=== PATIENT | male | born 1960 | race Caucasian/White ===

== ENCOUNTER → 2016-12-23 | Outpatient (CLI) | payer OTHER ==
[~2016-12-23] MED LIST: OXYC-284 PO
--- NOTE | 2016-12-23 16:46 | RADRPT ---
PROCEDURE: Right knee radiographs. CLINICAL INDICATION: Right knee pain. TECHNIQUE: Four views. Weight bearing. Frontal, lateral, oblique, and patellar view. COMPARISON: No prior studies are available for comparison. FINDINGS: There is no fracture or dislocation. The soft tissues are normal. There are degenerative changes with osteophytes arising from all 3 joint compartment margins. There is medial joint compartment narrowing and subarticular sclerosis. There is no lytic or blastic lesion. There is no radiopaque foreign body. IMPRESSION: 1. Moderate degenerative changes of the right knee. 2. Otherwise unremarkable study. RPTAT: QQ .Dylan Fishman MD, MD Date Time Electronically viewed and signed by .Dylan Fishman MD, on 12/23/2016 16:46 .R/
== END | disposition home or self-care (01) ==
LOC: HKI 10:10
PROVIDERS: ATTEND Orthopaedic Surgery
DX: M25.561 Pain in right knee (principal); M17.11 Unilateral primary osteoarthritis, right knee
CPT/HCPCS: 73564; Z7500; G0463

== ENCOUNTER 2017-07-18 09:51 | Inpatient (IN) | payer OTHER ==
[2017-07-17 14:51] VITALS: BMI 26.6
[~2017-07-18] VITALS: Ht 175.3 cm; Wt 83.6 kg
[2017-07-18] VITALS (19 sets, daily range): BP systolic 122–147; BP diastolic 66–94; PULSE 69–104; RESP 15–28; Ht 175.3 cm; Wt 83.6 kg
[~2017-07-18 09:51] MED LIST changes: +DIPHENHYDRAMINE 50 MG INJ IV PRN; +FENTAnyl 50 MCG/ML VIAL IV PRN; +HYDROmorphONE (0.2 MG/ML) 10ML SYG IV PRN; +MEPERIDINE 25 MG INJ IV PRN; +METOCLOPRAMIDE 10 MG INJ IV PRN; +ONDANSETRON 4 MG INJ IV PRN
[2017-07-18] MEDS ORDERED: GABA-526 PO (11:09)
[2017-07-18] MEDS ORDERED: RANI150T5 PO (11:10)
[2017-07-18] MEDS ORDERED: ASPI81TA3 PO (11:10)
[2017-07-18] MEDS ORDERED: MORP15TA92 PO (11:11)
--- NOTE | 2017-07-18 11:54 | PREOPHP ---
DATE OF ADMISSION: 07/18/2017 HISTORY OF PRESENT ILLNESS: The patient is a 57-year-old male, originally was seen in the office complaining of neck pain, pain going to the shoulders, down the left arm, and sometimes numbness. He also had low back pain with pain going to the left side to the left third toe and weakness in the left foot. 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 Conservative management was offered in the form of cervical epidural injections. The patient received 4 injections in the cervical spine without much relief. His condition is getting worse. The patient was having more pain in the cervical spine as well as in the arms as well as weakness in the legs. The patient also is complaining of gait dysfunction. The patient wants something more definite to be done. The only option left was surgical intervention in the form of cervical 3 to cervical 6 laminectomy with a possible fusion and a possible instrumentation. This was discussed with the patient in great detail and a possibility of fusion and instrumentation as well. The patient has agreed and wants to proceed. Surgical complications were discussed with the patient in great detail including infection, permanent nerve damage, bleeding, complications with anesthesia including stroke, heart attack and even . The patient has agreed and wants to proceed. PAST MEDICAL HISTORY: As stated. SURGICAL HISTORY: Per chart. SOCIAL HISTORY: Denies use of drugs, alcohol, or tobacco. ALLERGIES: PER CHART. MEDICATIONS: per chart. FAMILY HISTORY: Unremarkable. REVIEW OF SYSTEMS: Additional 10-point review of systems was conducted and pertinent positives in the HPI. PHYSICAL EXAMINATION: GENERAL APPEARANCE: The patient is awake, alert, oriented, follows simple commands properly. HEENT: Head is atraumatic, normocephalic. PULMONARY: No . No tachypnea. CARDIOVASCULAR: No JVD. No PND. ABDOMEN: Soft without . NEUROLOGIC: Awake, alert, oriented. Follows commands. Upper extremities overall strength is about 4/5 in the deltoids, biceps, triceps, , extensors and flexors. Lower extremity examination overall strength is about 4/5 in the hips, knees and ankles. RADIOGRAPHIC DATA: MRI of the cervical spine dated 05/27/2017 shows severe cervical stenosis of 3-4, 4-5, 5-6 with cord compression and signal RECOMMENDATIONS: For patient to undergo surgical intervention fusion and instrumentation. Surgical options and complications were discussed with the patient extensively. The patient will be admitted to the hospital for further care and management. Dictated By: Eddi Hunter MD /dashawn/kriss /Document#: [id number]
[2017-07-18] MEDS ORDERED: BUPIVACAINE 0.5%/EPI (SDV) 30 ML INJ ONE (13:45)
[2017-07-18] MEDS ORDERED: THROMBIN 5000 UNIT VIAL ONE (13:45)
[2017-07-18] MEDS ORDERED: GELATIN SIZE 100 SPONGE ONE (13:45)
[2017-07-18] MEDS ORDERED: niCARdipine 50 MG in SOD CHLORIDE 0.9% 480 ML IV PRN (15:30)
[2017-07-18] MEDS ORDERED: ONDANSETRON 4 MG INJ IV PRN (15:30)
[2017-07-18] MEDS ORDERED: LIDOCAINE 1% (MDV) 20 ML INJ ONE (15:46)
[2017-07-18] MEDS ORDERED: SUCCINYLCHOLINE CHLORIDE 100 MG/5 ML SYG IV ONE (15:46)
[2017-07-18] MEDS ORDERED: MIDAZOLAM 1 MG/ML 2 ML INJ ONE (15:46)
[2017-07-18] MEDS ORDERED: PROPOFOL 20 ML ONE (15:46)
[2017-07-18] MEDS ORDERED: PHENYLephrine (100 MCG/ML) 5ML SYG ONE (16:22)
[2017-07-18] MEDS ORDERED: CEFAZOLIN 1 GM INJ ONE (16:45)
[2017-07-18] MEDS ORDERED: FENTAnyl 50 MCG/ML VIAL ONE (17:14)
[2017-07-18] MEDS ORDERED: POLYMYXIN/BACITRACIN 1L IRRIG IRR ONE (17:36)
--- NOTE | 2017-07-18 18:18 | OPR ---
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
[2017-07-18] MEDS ORDERED: FAMOTIDINE 20 MG INJ ONE (18:30)
[2017-07-18] MEDS ORDERED: ONDANSETRON 4 MG INJ ONE (18:30)
[2017-07-18] MEDS ORDERED: DEXAMETHASONE 4 MG/ML 1 ML INJ ONE (18:30)
[2017-07-18] MEDS ORDERED: SUGAMMADEX SODIUM 200 MG/2 ML VIAL IV ONE (18:30)
[2017-07-18] MEDS: DEXTROSE 5%-LR 1,000 ML IV SCH ×2 (19:49→23:30)
[2017-07-18] MEDS: morphine 2 MG INJ IV PRN (20:04)
[2017-07-18] MEDS: DEXAMETHASONE 4 MG/ML 1 ML INJ IV SCH (20:04)
[2017-07-18] MEDS: CEFAZOLIN 1 GM/50 ML (PMX) 50 ML IVPB SCH (22:37)
[2017-07-19] VITALS (37 sets, daily range): BP systolic 115–154; BP diastolic 58–95; PULSE 66–109; RESP 12–25
[2017-07-19] MEDS: morphine 2 MG INJ IV PRN ×2 (00:59→14:38)
[2017-07-19] MEDS: DEXTROSE 5%-LR 1,000 ML IV SCH ×2 (04:27→13:31)
[2017-07-19] MEDS: CEFAZOLIN 1 GM/50 ML (PMX) 50 ML IVPB SCH ×3 (05:50→21:44)
[2017-07-19] MEDS: DEXAMETHASONE 4 MG/ML 1 ML INJ IV SCH ×4 (05:50→18:53)
--- NOTE | 2017-07-19 08:29 | RADRPT ---
PROCEDURE: X-ray fluoroscopic guidance for operative procedure CLINICAL INDICATION: C3-4 posterior fusion TECHNIQUE: Fluoroscopic guidance was provided for operative procedure Fluoro time: 3.4 seconds Number of images/sequences: 1 COMPARISON: None available FINDINGS: The patient is status post posterior fusion C3-C4 with screws and bars. IMPRESSION: The patient is status post posterior fusion C3-C4 with screws and bars. Please see operative report. RPTAT: HJES .Arnoldo Bourgeois MD, Date Time Electronically viewed and signed by .Arnoldo Bourgeois MD, on 07/19/2017 08:28 .S/
--- NOTE | 2017-07-19 12:22 | CONS ---
Date/Time of Note Date/Time of Note DATE: 07/19/17 TIME: 12:19 Assessment/Plan Assessment/Plan Additional Assessment/Plan seen/examined awake/alert/moves all/follows c3-7 laminectomy with fusion/instrumentation hemovac in place, will leave another 24hrs pt/ot cervical mri pending another day in icu Consultation Date/Type/Reason Admit Date/Time Jul 18, 2017 at 09:51 Initial Consult Date Exam/Review of Systems Vital Signs Vitals Vital Signs Date Time Temp Pulse Resp B/P Pulse Ox O2 Delivery O2 Flow Rate FiO2 07/19/17 12:00 89 07/19/17 12:00 19 135/81 96 Nasal Cannula 07/19/17 11:00 97.8 07/19/17 08:20 2.0 Intake and Output 07/18/17 07/18/17 07/19/17 14:59 22:59 06:59 Intake Total 2375 ml 1050 ml Output Total 585 ml 410 ml Balance 1790 ml 640 ml Medications Medications Current Medications Dexamethasone 4 mg 4 mg Q6 IV Last administered on 07/19/17 05:50; Admin Dose 4 MG; Start 07/18/17 at 18:00 Cefazolin Sodium 50 ml @ 100 mls/hr Q8 IVPB Last administered on 07/19/17 05: 50; Admin Dose 100 MLS/HR; Start 07/18/17 at 22:00; Stop 07/19/17 at 22:00 Nicardipine HCl 50 mg/Sodium Chloride 500 ml @ 50 mls/hr TITRATE PRN IV sbp< 160; Start 07/18/17 at 15:30 Dextrose/Lactated Ringer's (D5-Lr) 1,000 ml @ 125 mls/hr Q8H IV Last administered on 07/19/17 04:27; Admin Dose 125 MLS/HR; Start 07/18/17 at 15:30 Ondansetron HCl (Zofran Inj) 4 mg Q6H PRN IV NAUSEA AND/OR VOMITING; Start 07/18/17 at 15:30 Acetaminophen/ Hydrocodone Bitart ([place] (10/325)) 1 tab Q4H PRN PO PAIN; Start 07/18/17 at 15:30 Morphine Sulfate (morphine) 2 mg Q4H PRN IV severe pain Last administered on 00:59; Admin Dose 2 MG; Start 07/18/17 at 15:30 DAVID WATTS PA-C Jul 19, 2017 12:22
[2017-07-19] MEDS: CYCLOBENZAPRINE 10 MG TAB PO SCH ×2 (13:27→20:22)
[2017-07-19 13:46] LABS: BASOPHILS % 0.1 % (0.0-2.0); HEMATOCRIT 38.3 % (42.0-52.0); HEMOGLOBIN 13.1 g/dl (14.0-18.0); LYMPHOCYTES # 0.9 10^3/ul (0.8-2.9); LYMPHOCYTES % 4.9 % (15.0-51.0); MEAN CORPUSCULAR HEMOGLOBIN 29.6 pg (29.0-33.0); MEAN CORPUSCULAR HGB CONC 34.2 g/dl (32.0-37.0); MEAN CORPUSCULAR VOLUME 86.5 fl (82.0-101.0); MEAN PLATELET VOLUME 9.8 fl (7.4-10.4); MONOCYTE # 0.9 10^3/ul (0.3-0.9); MONOCYTES % 4.4 % (0.0-11.0); NEUTROPHIL # 17.2 10^3/ul (1.6-7.5); PLATELET COUNT 325 10^3/UL (140-415); RED BLOOD COUNT 4.43 10^6/ul (4.70-6.10); RED CELL DISTRIBUTION WIDTH 13.4 % (11.5-14.5); WHITE BLOOD COUNT 19.1 10^3/ul (4.8-10.8)
[2017-07-19 14:04] LABS: CALCIUM 9.1 mg/dl (8.4-10.2); CREATININE 0.81 mg/dl (0.61-1.24); POTASSIUM 3.8 mmol/L (3.5-5.1)
[2017-07-19] MEDS: ZOLPIDEM 5 MG TAB PO PRN (20:22)
[2017-07-20] VITALS (20 sets, daily range): BP systolic 120–155; BP diastolic 77–97; PULSE 81–102; RESP 15–27
[2017-07-20] MEDS: DEXAMETHASONE 4 MG/ML 1 ML INJ IV SCH ×3 (00:54→12:16)
[2017-07-20] MEDS: DEXTROSE 5%-LR 1,000 ML IV SCH ×3 (01:19→22:17)
[2017-07-20 05:37] LABS: BASOPHILS % 0.1 % (0.0-2.0); HEMATOCRIT 37.3 % (42.0-52.0); HEMOGLOBIN 12.7 g/dl (14.0-18.0); LYMPHOCYTES # 0.7 10^3/ul (0.8-2.9); LYMPHOCYTES % 3.3 % (15.0-51.0); MEAN CORPUSCULAR HEMOGLOBIN 29.4 pg (29.0-33.0); MEAN CORPUSCULAR VOLUME 86.3 fl (82.0-101.0); MEAN PLATELET VOLUME 10.2 fl (7.4-10.4); MONOCYTE # 0.8 10^3/ul (0.3-0.9); MONOCYTES % 3.8 % (0.0-11.0); NEUTROPHIL # 19.9 10^3/ul (1.6-7.5); NEUTROPHILS % 91.8 % (39.0-77.0); PLATELET COUNT 313 10^3/UL (140-415); RED BLOOD COUNT 4.32 10^6/ul (4.70-6.10); RED CELL DISTRIBUTION WIDTH 13.6 % (11.5-14.5); WHITE BLOOD COUNT 21.6 10^3/ul (4.8-10.8)
[2017-07-20 05:47] LABS: CALCIUM 9.2 mg/dl (8.4-10.2); CREATININE 0.78 mg/dl (0.61-1.24)
[2017-07-20] MEDS: CYCLOBENZAPRINE 10 MG TAB PO SCH ×3 (08:36→21:00)
--- NOTE | 2017-07-20 09:31 | RADRPT ---
PROCEDURE: MRI Cervical Spine. CLINICAL INDICATION: Followup status post cervical laminectomy changes TECHNIQUE: An MRI of the cervical spine was performed [facility] the following sequences: Sagittal and axial T1 weighted, sagittal and axial T2 weighted , sagittal STIR, delete the and axial GRE. COMPARISON: Cervical spine films dated 07/18/2017 and 11/11/2013 FINDINGS: There is straightening of the normal cervical lordosis present with 2 mm anterior subluxation of C2 on C3. The vertebral body heights are normal. Modic type 2 degenerative endplate changes are presen t at the C4-5 level and Modic type 1 degenerative endplate changes at C3-4. The patient is status po st laminectomy changes at the C3 through C6 levels. The patient is also status post anterior discect danae and fusion both anteriorly and posteriorly at C 03/04 through C6-7 levels. Posterior hardware is noted at the C3-C5 levels. The intervertebral discs demonstrate multilevel disc desiccation at C2-3 and C3-4 with mild disc space height loss. The cervical and upper thoracic cord is normal. The spec [facility] axial levels are as follows: Occiput to skull base: The posterior fossa and skull base appear normal. The spinal canal is patent without stenosis present. C2-3: Disc desiccation is present with mild disc space height loss. A mild 3 mm broad-based bulge is present. AP canal dimension is 9 mm. This results in a mild central canal stenosis without subartic ular recess stenosis. Left greater than right uncovertebral and facet osteoarthropathy is present. T his results in a severe left and mild right neural foraminal stenosis. C3-4: Disc desiccation is present with mild 2 mm eccentric bulge to the right. Decompression is note d at this level. The central canal and bilateral subarticular recesses are patent. Bilateral facet a rthropathy and uncovertebral osteoarthropathy is present which contributes to severe bilateral neura l foraminal stenosis. C4-5: Anterior discectomy and disc spacer with posterior decompression and hardware is noted with l aminectomy changes. The central canal and bilateral subarticular recesses are patent. Mild bilateral uncovertebral osteophytes and facet arthropathy is present which contributes to moderate bilateral neural foraminal stenosis. C4-5: Anterior discectomy and intervertebral disc spacer with post tear fusion and laminectomy paige es are again noted. A 3 mm central osteophyte is present. AP canal is decompressed however measures approximately 7 mm. The subarticular recess are patent. Bilateral uncovertebral osteophytes and face t arthropathy is present. This contributes to severe bilateral neural foraminal stenosis. C5-6: Laminectomy changes, with anterior fusion and intervertebral disc spacer and posterior element hardware fusion is present. The central canal and bilateral subarticular recesses are patent. Bilat eral facet and uncovertebral osteoarthropathy is present which contributes to severe bilateral neura l foraminal stenosis at this level. C6-7: The patient is status post anterior discectomy and intervertebral disc space at this level wit h laminectomy changes. The central canal and bilateral subarticular recesses are patent. Severe bila teral facet arthropathy and uncovertebral osteoarthropathy contribute to severe bilateral neural for aminal stenosis. C7-T1: Intervertebral discs is normal. The central canal, subarticular recess and neural foramen are patent. IMPRESSION: 1. No acute fractures or traumatic subluxations. 2. Straightening of the normal cervical lordosis with 2 mm anterior subluxation of C2 and C3. 3. Status post anterior discectomy and anterior and posterior fusion with laminectomy changes as no jayde above at the C3-C6 levels. 4. Multilevel broad-based disc osteophyte complexes as noted above at the C2-3 through C6-7 levels 5. Multilevel neural foraminal stenosis at the C2-3 through C6-7 levels 6. Multilevel facet and uncovertebral osteoarthropathy as noted. RPTAT: HDC .Jessica Andrews MD, Date Time Electronically viewed and signed by .Jessica Andrews MD, MD on 07/20/2017 09:31 .C/
--- NOTE | 2017-07-20 15:57 | CONS ---
Date/Time of Note Date/Time of Note DATE: 07/20/17 TIME: 15:56 Assessment/Plan Assessment/Plan Additional Assessment/Plan seen/examined awake/alert/follows/moves all c3-7 lami with fusion repeat mri looks good start ivabx for uti may leave unit pt/ot may be a good candidate for rehab. Consultation Date/Type/Reason Admit Date/Time Jul 18, 2017 at 09:51 Exam/Review of Systems Vital Signs Vitals Vital Signs Date Time Temp Pulse Resp B/P Pulse Ox O2 Delivery O2 Flow Rate FiO2 07/20/17 12:00 87 07/20/17 10:00 17 134/82 96 07/20/17 08:00 98.2 07/20/17 06:00 Room Air 07/19/17 08:20 2.0 Intake and Output 07/19/17 07/19/17 07/20/17 14:59 22:59 06:59 Intake Total 1440 ml 1000 ml 800 ml Output Total 1370 ml 825 ml 1565 ml Balance 70 ml 175 ml -765 ml Results Result Diagram: 07/20/17 0502 07/20/17 0502 Results 24 hrs Laboratory Tests Test 07/20/17 05:02 White Blood Count 21.6 H Red Blood Count 4.32 L Hemoglobin 12.7 L Hematocrit 37.3 L Mean Corpuscular Volume 86.3 Mean Corpuscular Hemoglobin 29.4 Mean Corpuscular Hemoglobin Concent 34.0 Red Cell Distribution Width 13.6 Platelet Count 313 Mean Platelet Volume 10.2 Neutrophils % 91.8 H Lymphocytes % 3.3 L Monocytes % 3.8 Eosinophils % 0.0 Basophils % 0.1 Nucleated Red Blood Cells % 0.0 Neutrophils # 19.9 H Lymphocytes # 0.7 L Monocytes # 0.8 Eosinophils # 0.0 Basophils # 0.0 Nucleated Red Blood Cells # 0.0 Sodium Level 141 Potassium Level 4.0 Chloride Level 106 Carbon Dioxide Level 27 Anion Gap 12 Blood Urea Nitrogen 12 Creatinine 0.78 Glucose Level 166 Calcium Level 9.2 Medications Medications Current Medications Dexamethasone 4 mg 4 mg Q6 IV Last administered on 07/20/17t 12:16; Admin Dose 4 MG; Start 07/18/17 at 18:00 Nicardipine HCl 50 mg/Sodium Chloride 500 ml @ 50 mls/hr TITRATE PRN IV sbp< 160; Start 07/18/17 at 15:30 Dextrose/Lactated Ringer's (D5-Lr) 1,000 ml @ 100 mls/hr Q10H IV Last administered on 07/20/17 11:47; Admin Dose 100 MLS/HR; Start 07/18/17 at 15:30 Ondansetron HCl (Zofran Inj) 4 mg Q6H PRN IV NAUSEA AND/OR VOMITING; Start 07/18/17 at 15:30 Acetaminophen/ Hydrocodone Bitart ([place] (10/325)) 1 tab Q4H PRN PO PAIN; Start 07/18/17 at 15:30 Morphine Sulfate (morphine) 2 mg Q4H PRN IV severe pain Last administered on 14:38; Admin Dose 2 MG; Start 07/18/17 at 15:30 Cyclobenzaprine HCl (Flexeril) 10 mg TID PO Last administered on 07/20/17 08: 36; Admin Dose 10 MG; Start 07/19/17 at 13:00 Zolpidem Tartrate (Ambien) 5 mg HS PRN PO INSOMNIA Last administered on 20:22; Admin Dose 5 MG; Start 07/19/17 at 20:00 DAVID WATTS PA-C Jul 20, 2017 15:57
[2017-07-20] MEDS ORDERED: VANCOMYCIN IV PER PHARMACY XX SCH (16:00)
[2017-07-20] MEDS: VANCOMYCIN 1.75 GM in SOD CHLORIDE 0.9% 500 ML IVPB SCH ×2 (17:30→18:50)
[2017-07-20] MEDS: morphine 2 MG INJ IV PRN (18:14)
[2017-07-21 00:32] VITALS: BP 110/56; RESP 18
[2017-07-21] MEDS: DEXTROSE 5%-LR 1,000 ML IV SCH ×4 (02:00→18:17)
[2017-07-21] MEDS ORDERED: VANCOMYCIN 1 GM in NS 250 ML IVPB SCH (05:00)
[2017-07-21 05:32] LABS: BASOPHILS % 0.2 % (0.0-2.0); HEMATOCRIT 36.8 % (42.0-52.0); HEMOGLOBIN 12.4 g/dl (14.0-18.0); LYMPHOCYTES # 1.8 10^3/ul (0.8-2.9); LYMPHOCYTES % 9.7 % (15.0-51.0); MEAN CORPUSCULAR HEMOGLOBIN 29.3 pg (29.0-33.0); MEAN CORPUSCULAR HGB CONC 33.7 g/dl (32.0-37.0); MEAN PLATELET VOLUME 10.2 fl (7.4-10.4); MONOCYTE # 1.5 10^3/ul (0.3-0.9); MONOCYTES % 8.1 % (0.0-11.0); NEUTROPHIL # 14.8 10^3/ul (1.6-7.5); NEUTROPHILS % 81.6 % (39.0-77.0); PLATELET COUNT 298 10^3/UL (140-415); RED BLOOD COUNT 4.23 10^6/ul (4.70-6.10); RED CELL DISTRIBUTION WIDTH 13.7 % (11.5-14.5); WHITE BLOOD COUNT 18.2 10^3/ul (4.8-10.8)
[2017-07-21 06:05] LABS: CREATININE 0.82 mg/dl (0.61-1.24); POTASSIUM 3.5 mmol/L (3.5-5.1)
[2017-07-21 07:55] VITALS: BP 113/64; RESP 18
[2017-07-21] MEDS: morphine 2 MG INJ IV PRN ×2 (08:44→15:19)
[2017-07-21] MEDS: CYCLOBENZAPRINE 10 MG TAB PO SCH ×2 (08:44→13:35)
[2017-07-21] MEDS: DEXAMETHASONE 4 MG TAB PO SCH (08:44)
--- NOTE | 2017-07-21 10:30 | PN ---
Date/Time of Note Date/Time of Note DATE: 07/21/17 TIME: 10:27 Assessment/Plan VTE Prophylaxis VTE Prophylaxis Intervention: SCD's Lines/Catheters IV Catheter Type (from Nrs): Peripheral IV Urinary Cath still in place: Yes Reason Cath still needed: urinary retention Assessment/Plan Chief Complaint/Hosp Course Patient complains of pain however able to get out of bed with PT, wants to go smoke. Problems: Assessment/Plan -Cervical spondylosis with cord compression, myelopathy and quadriparesis, status post cervical laminectomy with C3-C7 posterolateral fusion and instrumentation by Dr. Hunter on 07/18. Continue postoperative antibiotics and steroids, and medication. Continue physical therapy. -Obesity -Tobacco dependence, start nicotine patch. Further recommendations based on clinical course. Plan of care discussed with Dr. Argueta. Exam/Review of Systems Vital Signs Vitals Vital Signs Date Time Temp Pulse Resp B/P Pulse Ox O2 Delivery O2 Flow Rate FiO2 07/21/17 07:55 97.8 80 18 113/64 94 07/20/17 18:54 Room Air 07/19/17 08:20 2.0 Intake and Output 07/20/17 07/20/17 07/21/17 14:59 22:59 06:59 Intake Total 1220 ml 120 ml 1650 ml Output Total 1400 ml 405 ml 700 ml Balance -180 ml -285 ml 950 ml Exam Constitutional: alert, oriented Head: normocephalic Neck: other (Status post surgery), supple Respiratory: normal air movement Cardiovascular: nl pulses Gastrointestinal: non-tender, soft Extremities: normal pulses Neurological: nl mental status Results Result Diagram: 07/21/17 0425 07/21/17 0425 Results 24 hrs Laboratory Tests Test 07/21/17 04:25 White Blood Count 18.2 H Red Blood Count 4.23 L Hemoglobin 12.4 L Hematocrit 36.8 L Mean Corpuscular Volume 87.0 Mean Corpuscular Hemoglobin 29.3 Mean Corpuscular Hemoglobin Concent 33.7 Red Cell Distribution Width 13.7 Platelet Count 298 Mean Platelet Volume 10.2 Neutrophils % 81.6 H Lymphocytes % 9.7 L Monocytes % 8.1 Eosinophils % 0.0 Basophils % 0.2 Nucleated Red Blood Cells % 0.0 Neutrophils # 14.8 H Lymphocytes # 1.8 Monocytes # 1.5 H Eosinophils # 0.0 Basophils # 0.0 Nucleated Red Blood Cells # 0.0 Sodium Level 141 Potassium Level 3.5 Chloride Level 107 Carbon Dioxide Level 26 Anion Gap 12 Blood Urea Nitrogen 18 Creatinine 0.82 Glucose Level 130 Calcium Level 9.0 Medications Medications Current Medications Dextrose/Lactated Ringer's (D5-Lr) 1,000 ml @ 100 mls/hr Q10H IV Last administered on 07/21/17 02:00; Admin Dose 100 MLS/HR; Start 07/18/17 at 15:30 Ondansetron HCl (Zofran Inj) 4 mg Q6H PRN IV NAUSEA AND/OR VOMITING; Start 07/18/17 at 15:30 Acetaminophen/ Hydrocodone Bitart ([place] (10/325)) 1 tab Q4H PRN PO PAIN; Start 07/18/17 at 15:30 Morphine Sulfate (morphine) 2 mg Q4H PRN IV severe pain Last administered on 08:44; Admin Dose 2 MG; Start 07/18/17 at 15:30 Cyclobenzaprine HCl (Flexeril) 10 mg TID PO Last administered on 07/21/17 08: 44; Admin Dose 10 MG; Start 07/19/17 at 13:00 Zolpidem Tartrate (Ambien) 5 mg HS PRN PO INSOMNIA Last administered on 20:22; Admin Dose 5 MG; Start 07/19/17 at 20:00 Dexamethasone 4 mg 4 mg DAILY PO Last administered on 07/21/17 08:44; Admin Dose 4 MG; Start 07/21/17 at 09:00 Vancomycin HCl (Vancocin) 250 ml @ 125 mls/hr Q12H IVPB Last administered on 07/21/17 05:24; Admin Dose 125 MLS/HR; Start 07/21/17 at 05:00 SHAKIRA PAREKH Jul 21, 2017 10:30
[2017-07-21] MEDS: HYDROCODONE/APAP (10/325) TAB PO PRN (11:29)
[2017-07-21] MEDS: NICOTINE (21 MG/24 HR) PATCH TRANSDERM SCH ×2 (14:30→17:55)
[2017-07-21 15:38] VITALS: BP 121/76; RESP 18
[2017-07-21] MEDS: AMPICILLIN 500 MG CAP PO SCH (17:54)
[2017-07-21 20:30] VITALS: BP 101/57; RESP 18
[2017-07-22] MEDS: DEXTROSE 5%-LR 1,000 ML IV SCH ×2 (00:07→14:17)
[2017-07-22] MEDS: AMPICILLIN 500 MG CAP PO SCH ×5 (00:09→20:50)
[2017-07-22] MEDS: CYCLOBENZAPRINE 10 MG TAB PO SCH ×4 (00:09→20:50)
[2017-07-22 02:48] VITALS: BP 119/76; RESP 18
[2017-07-22] MEDS: DEXAMETHASONE 4 MG TAB PO SCH (07:59)
[2017-07-22 08:00] LABS: BASOPHILS % 0.2 % (0.0-2.0); EOSINOPHILS % 0.3 % (0.0-7.0); HEMATOCRIT 38.1 % (42.0-52.0); HEMOGLOBIN 12.9 g/dl (14.0-18.0); LYMPHOCYTES # 2.3 10^3/ul (0.8-2.9); MEAN CORPUSCULAR HEMOGLOBIN 29.3 pg (29.0-33.0); MEAN CORPUSCULAR HGB CONC 33.9 g/dl (32.0-37.0); MEAN CORPUSCULAR VOLUME 86.6 fl (82.0-101.0); MEAN PLATELET VOLUME 9.8 fl (7.4-10.4); MONOCYTE # 1.2 10^3/ul (0.3-0.9); MONOCYTES % 8.6 % (0.0-11.0); NEUTROPHILS % 73.5 % (39.0-77.0); PLATELET COUNT 296 10^3/UL (140-415); RED CELL DISTRIBUTION WIDTH 13.3 % (11.5-14.5); WHITE BLOOD COUNT 13.6 10^3/ul (4.8-10.8)
[2017-07-22] MEDS: HYDROCODONE/APAP (10/325) TAB PO PRN ×2 (08:03→13:24)
[2017-07-22 08:16] LABS: CALCIUM 8.9 mg/dl (8.4-10.2); CREATININE 0.92 mg/dl (0.61-1.24); POTASSIUM 3.5 mmol/L (3.5-5.1)
[2017-07-22 08:29] VITALS: BP 130/85; RESP 18
[2017-07-22] MEDS: morphine 2 MG INJ IV PRN (09:18)
[2017-07-22] MEDS: NICOTINE (21 MG/24 HR) PATCH TRANSDERM SCH (13:19)
--- NOTE | 2017-07-22 14:01 | PN ---
Date/Time of Note Date/Time of Note DATE: 07/22/17 TIME: 13:59 Assessment/Plan VTE Prophylaxis VTE Prophylaxis Intervention: SCD's Lines/Catheters IV Catheter Type (from Nrsg): Peripheral IV Urinary Cath still in place: Yes Reason Cath still needed: urinary retention Assessment/Plan Chief Complaint/Hosp Course Patient complains of significant amount of pain while out of bed, continue physical therapy, pending authorization for ARU placement Assessment/Plan -Cervical spondylosis with cord compression, myelopathy and quadriparesis, status post cervical laminectomy with C3-C7 posterolateral fusion and instrumentation by Dr. Hunter on 07/18. Continue postoperative antibiotics and steroids, and medication. Continue physical therapy. -Obesity -Tobacco dependence, continue nicotine patch, smoking cessation is strongly advised. Further recommendations based on clinical course. Plan of care discussed with Dr. Argueta. Problems: Exam/Review of Systems Vital Signs Vitals Vital Signs Date Time Temp Pulse Resp B/P Pulse Ox O2 Delivery O2 Flow Rate FiO2 07/22/17 08:29 97.4 87 18 130/85 94 07/20/17 18:54 Room Air 07/19/17 08:20 2.0 Intake and Output 07/21/17 07/21/17 07/22/17 14:59 22:59 06:59 Intake Total 1100 ml 1190 ml 1750 ml Output Total 1400 ml 1500 ml Balance 1100 ml -210 ml 250 ml Exam Constitutional: alert, oriented Neck: other (Status post surgery), supple Respiratory: normal air movement Cardiovascular: nl pulses Gastrointestinal: non-tender, soft Extremities: normal pulses Neurological: nl mental status Results Result Diagram: 07/22/17 0727 07/22/17 0727 Results 24 hrs Laboratory Tests Test 07/22/17 07:27 White Blood Count 13.6 #H Red Blood Count 4.40 L Hemoglobin 12.9 L Hematocrit 38.1 L Mean Corpuscular Volume 86.6 Mean Corpuscular Hemoglobin 29.3 Mean Corpuscular Hemoglobin Concent 33.9 Red Cell Distribution Width 13.3 Platelet Count 296 Mean Platelet Volume 9.8 Neutrophils % 73.5 Lymphocytes % 17.0 Monocytes % 8.6 Eosinophils % 0.3 Basophils % 0.2 Nucleated Red Blood Cells % 0.0 Neutrophils # 10.0 H Lymphocytes # 2.3 Monocytes # 1.2 H Eosinophils # 0.0 Basophils # 0.0 Nucleated Red Blood Cells # 0.0 Sodium Level 140 Potassium Level 3.5 Chloride Level 102 Carbon Dioxide Level 29 Anion Gap 13 Blood Urea Nitrogen 15 Creatinine 0.92 Glucose Level 99 Calcium Level 8.9 Medications Medications Current Medications Dextrose/Lactated Ringer's (D5-Lr) 1,000 ml @ 100 mls/hr Q10H IV Last administered on 07/22/17 00:07; Admin Dose 100 MLS/HR; Start 07/18/17 at 15:30 Ondansetron HCl (Zofran Inj) 4 mg Q6H PRN IV NAUSEA AND/OR VOMITING; Start 07/18/17 at 15:30 Acetaminophen/ Hydrocodone Bitart ([place] (10/325)) 1 tab Q4H PRN PO PAIN Last administered on 07/22/17 13:24; Admin Dose 1 TAB; Start 07/18/17 at 15:30 Morphine Sulfate (morphine) 2 mg Q4H PRN IV severe pain Last administered on 09:18; Admin Dose 2 MG; Start 07/18/17 at 15:30 Cyclobenzaprine HCl (Flexeril) 10 mg TID PO Last administered on 07/22/17 13: 19; Admin Dose 10 MG; Start 07/19/17 at 13:00 Zolpidem Tartrate (Ambien) 5 mg HS PRN PO INSOMNIA Last administered on 20:22; Admin Dose 5 MG; Start 07/19/17 at 20:00 Dexamethasone (Decadron) 4 mg DAILY PO Last administered on 07/22/17 07:59; Admin Dose 4 MG; Start 07/21/17 at 09:00 Nicotine (Nicoderm 21 Mg/ 24hr) 1 patch Q24H TRANSDERM Last administered on 13:19; Admin Dose 1 PATCH; Start 07/21/17 at 14:30 Ampicillin (Ampicillin) 500 mg QID PO Last administered on 07/22/17 13:19; Admin Dose 500 MG; Start 07/21/17 at 17:00 SHAKIRA PAREKH Jul 22, 2017 14:01
[2017-07-22 15:00] VITALS: BP 111/74; RESP 18
[2017-07-22 20:20] VITALS: BP 116/77; RESP 20
[2017-07-22] MEDS: ZOLPIDEM 5 MG TAB PO PRN (20:49)
[2017-07-23] MEDS: DEXTROSE 5%-LR 1,000 ML IV SCH ×2 (00:17→10:17)
[2017-07-23] MEDS: AMPICILLIN 500 MG CAP PO SCH ×4 (07:37→21:16)
[2017-07-23] MEDS: CYCLOBENZAPRINE 10 MG TAB PO SCH ×3 (07:37→21:16)
[2017-07-23] MEDS: morphine 2 MG INJ IV PRN (07:38)
[2017-07-23] MEDS: DEXAMETHASONE 4 MG TAB PO SCH (07:38)
[2017-07-23 08:04] VITALS: BP 123/83; RESP 19
[2017-07-23 08:35] LABS: BASOPHILS % 0.2 % (0.0-2.0); EOSINOPHILS # 0.1 10^3/ul (0.0-0.5); EOSINOPHILS % 0.5 % (0.0-7.0); HEMATOCRIT 39.2 % (42.0-52.0); HEMOGLOBIN 13.6 g/dl (14.0-18.0); LYMPHOCYTES # 2.3 10^3/ul (0.8-2.9); LYMPHOCYTES % 14.4 % (15.0-51.0); MEAN CORPUSCULAR HEMOGLOBIN 29.5 pg (29.0-33.0); MEAN CORPUSCULAR HGB CONC 34.7 g/dl (32.0-37.0); MEAN PLATELET VOLUME 9.7 fl (7.4-10.4); MONOCYTE # 1.1 10^3/ul (0.3-0.9); NEUTROPHIL # 12.4 10^3/ul (1.6-7.5); NEUTROPHILS % 77.2 % (39.0-77.0); PLATELET COUNT 343 10^3/UL (140-415); RED BLOOD COUNT 4.61 10^6/ul (4.70-6.10); RED CELL DISTRIBUTION WIDTH 13.2 % (11.5-14.5); WHITE BLOOD COUNT 16.1 10^3/ul (4.8-10.8)
[2017-07-23 09:12] LABS: CALCIUM 9.4 mg/dl (8.4-10.2); CREATININE 0.84 mg/dl (0.61-1.24); POTASSIUM 3.7 mmol/L (3.5-5.1)
[2017-07-23] MEDS: NICOTINE (21 MG/24 HR) PATCH TRANSDERM SCH (14:00)
--- NOTE | 2017-07-23 14:55 | PN ---
Date/Time of Note Date/Time of Note DATE: 07/23/17 TIME: 14:53 Assessment/Plan VTE Prophylaxis VTE Prophylaxis Intervention: SCD's Lines/Catheters IV Catheter Type (from Nrs): [place] Urinary Cath still in place: Yes Reason Cath still needed: urinary retention Assessment/Plan Chief Complaint/Hosp Course Patient complains of significant amount of pain while out of bed, continue physical therapy, okay to transfer to ARU Assessment/Plan -Cervical spondylosis with cord compression, myelopathy and quadriparesis, status post cervical laminectomy with C3-C7 posterolateral fusion and instrumentation by Dr. Hunter on 07/18. Continue postoperative antibiotics and steroids, and medication. Continue physical therapy. -Obesity -Tobacco dependence, continue nicotine patch, smoking cessation is strongly advised. Further recommendations based on clinical course. Plan of care discussed with Dr. Argueta. Problems: Exam/Review of Systems Vital Signs Vitals Vital Signs Date Time Temp Pulse Resp B/P Pulse Ox O2 Delivery O2 Flow Rate FiO2 07/23/17 08:04 98.2 84 19 123/83 98 07/20/17 18:54 Room Air 07/19/17 08:20 2.0 Intake and Output 07/22/17 07/22/17 07/23/17 14:59 22:59 06:59 Intake Total 840 ml 440 ml Output Total 1300 ml 1000 ml Balance -460 ml -560 ml Exam Constitutional: alert, oriented Neck: other (Status post surgery), supple Respiratory: normal air movement Cardiovascular: nl pulses Gastrointestinal: non-tender, soft Extremities: normal pulses Neurological: nl mental status Results Result Diagram: 07/23/17 0807 07/23/17 0807 Results 24 hrs Laboratory Tests Test 07/23/17 08:07 White Blood Count 16.1 H Red Blood Count 4.61 L Hemoglobin 13.6 L Hematocrit 39.2 L Mean Corpuscular Volume 85.0 Mean Corpuscular Hemoglobin 29.5 Mean Corpuscular Hemoglobin Concent 34.7 Red Cell Distribution Width 13.2 Platelet Count 343 Mean Platelet Volume 9.7 Neutrophils % 77.2 H Lymphocytes % 14.4 L Monocytes % 7.0 Eosinophils % 0.5 Basophils % 0.2 Nucleated Red Blood Cells % 0.0 Neutrophils # 12.4 H Lymphocytes # 2.3 Monocytes # 1.1 H Eosinophils # 0.1 Basophils # 0.0 Nucleated Red Blood Cells # 0.0 Sodium Level 139 Potassium Level 3.7 Chloride Level 103 Carbon Dioxide Level 28 Anion Gap 12 Blood Urea Nitrogen 20 Creatinine 0.84 Glucose Level 94 Calcium Level 9.4 Medications Medications Current Medications Dextrose/Lactated Ringer's (D5-Lr) 1,000 ml @ 100 mls/hr Q10H IV Last administered on 07/22/17 00:07; Admin Dose 100 MLS/HR; Start 07/18/17 at 15:30 Ondansetron HCl (Zofran Inj) 4 mg Q6H PRN IV NAUSEA AND/OR VOMITING; Start 07/18/17 at 15:30 Acetaminophen/ Hydrocodone Bitart ([place] (10/325)) 1 tab Q4H PRN PO PAIN Last administered on 07/22/17 13:24; Admin Dose 1 TAB; Start 07/18/17 at 15:30 Morphine Sulfate (morphine) 2 mg Q4H PRN IV severe pain Last administered on 07:38; Admin Dose 2 MG; Start 07/18/17 at 15:30 Cyclobenzaprine HCl (Flexeril) 10 mg TID PO Last administered on 07/23/17 14: 00; Admin Dose 10 MG; Start 07/19/17 at 13:00 Zolpidem Tartrate (Ambien) 5 mg HS PRN PO INSOMNIA Last administered on 20:49; Admin Dose 5 MG; Start 07/19/17 at 20:00 Dexamethasone (Decadron) 4 mg DAILY PO Last administered on 07/23/17 07:38; Admin Dose 4 MG; Start 07/21/17 at 09:00 Nicotine (Nicoderm 21 Mg/ 24hr) 1 patch Q24H TRANSDERM Last administered on 14:00; Admin Dose 1 PATCH; Start 07/21/17 at 14:30 Ampicillin (Ampicillin) 500 mg QID PO Last administered on 07/23/17 14:00; Admin Dose 500 MG; Start 07/21/17 at 17:00 SHAKIRA PAREKH Jul 23, 2017 14:55
[2017-07-23 15:51] VITALS: BP 121/79; RESP 18
[2017-07-23] MEDS: HYDROmorphONE 1 MG/ML SYG IV PRN (18:41)
[2017-07-23] MEDS ORDERED: POLYETHYLENE GLYCOL 17 GM PACKET PO PRN (19:00)
[2017-07-23 21:08] VITALS: BP 111/85; RESP 20
[2017-07-23] MEDS: ZOLPIDEM 5 MG TAB PO PRN (21:16)
[2017-07-23] MEDS: DOCUSATE SODIUM 100 MG CAP PO SCH (21:16)
[2017-07-24] MEDS: HYDROmorphONE 1 MG/ML SYG IV PRN ×2 (07:44→13:28)
[2017-07-24 08:16] VITALS: BP 127/86; RESP 18
[2017-07-24 08:36] LABS: BASOPHILS % 0.2 % (0.0-2.0); EOSINOPHILS # 0.1 10^3/ul (0.0-0.5); EOSINOPHILS % 0.6 % (0.0-7.0); HEMATOCRIT 41.3 % (42.0-52.0); HEMOGLOBIN 14.1 g/dl (14.0-18.0); LYMPHOCYTES # 2.6 10^3/ul (0.8-2.9); LYMPHOCYTES % 14.7 % (15.0-51.0); MEAN CORPUSCULAR HEMOGLOBIN 29.1 pg (29.0-33.0); MEAN CORPUSCULAR HGB CONC 34.1 g/dl (32.0-37.0); MEAN CORPUSCULAR VOLUME 85.3 fl (82.0-101.0); MONOCYTE # 1.2 10^3/ul (0.3-0.9); MONOCYTES % 6.4 % (0.0-11.0); NEUTROPHIL # 13.8 10^3/ul (1.6-7.5); NEUTROPHILS % 77.1 % (39.0-77.0); PLATELET COUNT 395 10^3/UL (140-415); RED BLOOD COUNT 4.84 10^6/ul (4.70-6.10); RED CELL DISTRIBUTION WIDTH 13.5 % (11.5-14.5); WHITE BLOOD COUNT 17.8 10^3/ul (4.8-10.8)
[2017-07-24] MEDS: AMPICILLIN 500 MG CAP PO SCH ×2 (08:45→12:27)
[2017-07-24] MEDS: CYCLOBENZAPRINE 10 MG TAB PO SCH ×2 (08:45→12:27)
[2017-07-24] MEDS: DOCUSATE SODIUM 100 MG CAP PO SCH (08:45)
[2017-07-24] MEDS: HYDROCODONE/APAP (10/325) TAB PO PRN ×2 (08:46→12:28)
[2017-07-24] MEDS: DEXAMETHASONE 4 MG TAB PO SCH (08:46)
[2017-07-24 08:54] LABS: CALCIUM 9.3 mg/dl (8.4-10.2); CREATININE 0.87 mg/dl (0.61-1.24); POTASSIUM 3.7 mmol/L (3.5-5.1)
[2017-07-24 12:12] VITALS: BP 120/75; PULSE 86; RESP 16
[2017-07-24] MEDS ORDERED: DIAZEPAM 5 MG TAB PO PRN (13:00)
--- NOTE | 2017-07-24 13:07 | CONS ---
Date/Time of Note Date/Time of Note DATE: 07/24/17 TIME: 13:06 Assessment/Plan Assessment/Plan Additional Assessment/Plan seen/examined co neck pain with rad to left arm moves all/sensation intact cervical laminectomy, with fusion encourage pt/ot wound looks good Consultation Date/Type/Reason Admit Date/Time Jul 18, 2017 at 09:51 Exam/Review of Systems Vital Signs Vitals Vital Signs Date Time Temp Pulse Resp B/P Pulse Ox O2 Delivery O2 Flow Rate FiO2 07/24/17 12:12 98.6 86 16 120/75 94 07/20/17 18:54 Room Air Intake and Output 07/23/17 07/23/17 07/24/17 15:00 23:00 07:00 Intake Total 700 ml 500 ml Output Total 1200 ml 1100 ml Balance -500 ml -600 ml Results Result Diagram: 07/24/17 0750 07/24/17 0750 Results 24 hrs Laboratory Tests Test 07/24/17 07:50 White Blood Count 17.8 H Red Blood Count 4.84 Hemoglobin 14.1 Hematocrit 41.3 L Mean Corpuscular Volume 85.3 Mean Corpuscular Hemoglobin 29.1 Mean Corpuscular Hemoglobin Concent 34.1 Red Cell Distribution Width 13.5 Platelet Count 395 Mean Platelet Volume 10.0 Neutrophils % 77.1 H Lymphocytes % 14.7 L Monocytes % 6.4 Eosinophils % 0.6 Basophils % 0.2 Nucleated Red Blood Cells % 0.0 Neutrophils # 13.8 H Lymphocytes # 2.6 Monocytes # 1.2 H Eosinophils # 0.1 Basophils # 0.0 Nucleated Red Blood Cells # 0.0 Sodium Level 139 Potassium Level 3.7 Chloride Level 103 Carbon Dioxide Level 27 Anion Gap 13 Blood Urea Nitrogen 26 H Creatinine 0.87 Glucose Level 91 Calcium Level 9.3 Medications Medications Current Medications Ondansetron HCl (Zofran Inj) 4 mg Q6H PRN IV NAUSEA AND/OR VOMITING; Start 07/18/17 at 15:30 Acetaminophen/ Hydrocodone Bitart ([place] (10/325)) 1 tab Q4H PRN PO PAIN Last administered on 07/24/17 12:28; Admin Dose 1 TAB; Start 07/18/17 at 15:30 Cyclobenzaprine HCl (Flexeril) 10 mg TID PO Last administered on 07/24/17 12: 27; Admin Dose 10 MG; Start 07/19/17 at 13:00 Zolpidem Tartrate (Ambien) 5 mg HS PRN PO INSOMNIA Last administered on 21:16; Admin Dose 5 MG; Start 07/19/17 at 20:00 Dexamethasone (Decadron) 4 mg DAILY PO Last administered on 07/24/17 08:46; Admin Dose 4 MG; Start 07/21/17 at 09:00 Nicotine (Nicoderm 21 Mg/ 24hr) 1 patch Q24H TRANSDERM Last administered on 14:00; Admin Dose 1 PATCH; Start 07/21/17 at 14:30 Ampicillin (Ampicillin) 500 mg QID PO Last administered on 07/24/17 12:27; Admin Dose 500 MG; Start 07/21/17 at 17:00 Hydromorphone HCl (Dilaudid) 1 mg Q3H PRN IV SEVERE PAIN LEVEL 7-10 Last administered on 07/24/17 07:44; Admin Dose 1 MG; Start 07/23/17 at 18:30 Docusate Sodium (Colace) 100 mg BID PO Last administered on 07/24/17 08:45; Admin Dose 100 MG; Start 07/23/17 at 21:00 Polyethylene Glycol (Miralax) 17 gm DAILY PRN PO CONSTIPATION; Start 07/23/17 at 19:00 Diazepam (Valium) 5 mg Q6H PRN PO ANXIETY; Start 07/24/17 at 13:00 DAVID WATTS PA-C Jul 24, 2017 13:07
[2017-07-24 14:21] VITALS: BP 129/76; RESP 18
[2017-07-24] MEDS: NICOTINE (21 MG/24 HR) PATCH TRANSDERM SCH (15:12)
--- NOTE | 2017-07-24 15:53 | HP ---
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 Further recommendations based on clinical course. Plan of care discussed with Dr. Argueta. HPI/ROS Admit Date/Time Admit Date/Time Jul 18, 2017 at 09:51 Hx of Present Illness This is a 57-year-old male was seen in dr Hunter office for neck pain, pain going to the shoulders, down the left arm, and sometimes numbness. He also had low back pain with pain going to the left side to the left third toe and weakness in the left foot. 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 The patient received 4 injections in the cervical spine without much relief. His condition is getting worse with c/o more pain in the cervical spine. BUE , BLE, gait dysfunction. The patient was admitted in ICU under Dr. Argueta for status post cervical 3-7 laminectomy with C3-C7 posterior lateral fusion and posterior segmental instrumentation at C3-C4 with an synapse by synthes. During assessment patient is alert, in mild distress due to pain. Staff is contacting Dr. Bowling. Patient denies any chest pain, shortness of breath, fever, chills, palpitations, headache, focal weakness or numbness, abdominal pain, nausea, vomiting. This complain of postop pain. Plan of care discussed with the staff ROS Respiratory: no complaints Cardiovascular: no complaints Gastrointestinal: no complaints Genitourinary: no complaints Musculoskeletal: neck pain PMH/Family/Social Past Medical History - Chronic neck pain Past Surgical History - SP Cervical fusion - Cataract surgery Social History Alcohol Use: none Smoking Status: Current every day smoker Drug Use: none Exam/Review of Systems Vital Signs Vitals Vital Signs Date Time Temp Pulse Resp B/P Pulse Ox O2 Delivery O2 Flow Rate FiO2 12/2/17 16:00 98.8 97 21 144/88 96 Room Air 07/19/17 08:20 2.0 Intake and Output 07/18/17 07/18/17 07/19/17 14:59 22:59 06:59 Intake Total 2375 ml 1050 ml Output Total 585 ml 410 ml Balance 1790 ml 640 ml Exam Constitutional: alert, other, well developed Psych: nl mood/affect Respiratory: normal air movement Cardiovascular: nl pulses Gastrointestinal: non-tender, soft Musculoskeletal: nl extremities to inspection Extremities: normal pulses Neurological: other (Awake, alert, follows simple commands) Labs Result Diagram: 07/19/17 1320 07/19/17 1320 Medications Medications Current Medications Dexamethasone 4 mg 4 mg Q6 IV Last administered on 07/19/17 13:28; Admin Dose 4 MG; Start 07/18/17 at 18:00 Cefazolin Sodium 50 ml @ 100 mls/hr Q8 IVPB Last administered on 07/19/17 13: 27; Admin Dose 100 MLS/HR; Start 07/18/17 at 22:00; Stop 07/19/17 at 22:00 Nicardipine HCl 50 mg/Sodium Chloride 500 ml @ 50 mls/hr TITRATE PRN IV sbp< 160; Start 07/18/17 at 15:30 Dextrose/Lactated Ringer's (D5-Lr) 1,000 ml @ 100 mls/hr Q10H IV Last administered on 07/19/17 13:31; Admin Dose 100 MLS/HR; Start 07/18/17 at 15:30 Ondansetron HCl (Zofran Inj) 4 mg Q6H PRN IV NAUSEA AND/OR VOMITING; Start 07/18/17 at 15:30 Acetaminophen/ Hydrocodone Bitart ([place] (10/325)) 1 tab Q4H PRN PO PAIN; Start 07/18/17 at 15:30 Morphine Sulfate (morphine) 2 mg Q4H PRN IV severe pain Last administered on 14:38; Admin Dose 2 MG; Start 07/18/17 at 15:30 Cyclobenzaprine HCl (Flexeril) 10 mg TID PO Last administered on 07/19/17 13: 27; Admin Dose 10 MG; Start 12/2/17 at 13:00 Procedures Procedures PROCEDURE: X-ray fluoroscopic guidance for operative procedure CLINICAL INDICATION: C3-4 posterior fusion TECHNIQUE: Fluoroscopic guidance was provided for operative procedure Fluoro time: 3.4 seconds Number of images/sequences: 1 COMPARISON: None available FINDINGS: The patient is status post posterior fusion C3-C4 with screws and bars. IMPRESSION: The patient is status post posterior fusion C3-C4 with screws and bars. Please see operative report. NI LEE Jul 19, 2017 18:36
[2017-07-25] MEDS ORDERED: DEXAMETHASONE 2 MG TAB PO SCH (09:00)
== END 2017-07-24 15:22 | DRG 471 ==
LOC: REC 09:51 → EEVIPCON 09:51 → ICU 19:04 → MS1 07-20 18:35
PROVIDERS: ADMIT Neurological Surgery; ATTEND Neurological Surgery
PROC: 00NW0ZZ Release Cervical Spinal Cord, Open Approach (ICD-10-PCS; 2017-07-18)
PROC: 0RG2071 Fusion of 2 or more Cervical Vertebral Joints with Autologous Tissue Substitute, Posterior Approach, Posterior Column, Open Approach (ICD-10-PCS; principal; 2017-07-18 12:00)
DX: M47.12 Other spondylosis with myelopathy, cervical region (principal); G82.50 Quadriplegia, unspecified; N39.0 Urinary tract infection, site not specified; E66.9 Obesity, unspecified; Z68.27 Body mass index [BMI] 27.0-27.9, adult; F17.200 Nicotine dependence, unspecified, uncomplicated; M47.22 Other spondylosis with radiculopathy, cervical region
CPT/HCPCS: 72020; 72141; 80048; 85025; 86850; 86900; 86901; 87081; 87086; 97110; 97116; 97162; 97166; 97530; J0690; J1100; J1170; J1644; J2250; J2270; J2370; J2405; J3010; J3370; J7040; J7121

== ENCOUNTER 2017-07-24 14:58 | Inpatient (IN) | payer OTHER ==
[~2017-07-24] VITALS: Ht 172.7 cm; Wt 83.6 kg
[~2017-07-24 14:58] MED LIST changes: +ASPI81TA3 PO; -DIPHENHYDRAMINE 50 MG INJ IV PRN; -FENTAnyl 50 MCG/ML VIAL IV PRN; +GABA-526 PO; -HYDROmorphONE (0.2 MG/ML) 10ML SYG IV PRN; -MEPERIDINE 25 MG INJ IV PRN; -METOCLOPRAMIDE 10 MG INJ IV PRN; +MORP15TA92 PO; -ONDANSETRON 4 MG INJ IV PRN; -OXYC-284 PO; +RANI150T5 PO
[2017-07-24 15:00] VITALS: Ht 172.7 cm; Wt 83.6 kg
[2017-07-24 15:58] VITALS: BP 119/84; PULSE 94; RESP 18
[2017-07-24] MEDS ORDERED: POLYETHYLENE GLYCOL 17 GM PACKET PO PRN (16:30)
[2017-07-24] MEDS ORDERED: NICOTINE (21 MG/24 HR) PATCH TRANSDERM SCH (16:30)
[2017-07-24] MEDS ORDERED: LACTULOSE 30ML CUP PO PRN (16:30)
[2017-07-24] MEDS ORDERED: ACETAMINOPHEN 325 MG TAB PO PRN (16:30)
[2017-07-24] MEDS ORDERED: MAGNESIUM HYDROXIDE 30ML CUP PO PRN (16:30)
[2017-07-24] MEDS ORDERED: DOCUSATE SODIUM 100 MG CAP PO SCH (16:30)
[2017-07-24] MEDS ORDERED: BISACODYL 10 MG SUPP PR PRN (16:30)
[2017-07-24] MEDS ORDERED: ONDANSETRON 4 MG INJ IV PRN (16:30)
[2017-07-24] MEDS: HYDROmorphONE 1 MG/ML SYG IV STA ×2 (16:46→17:06)
[2017-07-24] MEDS: AMPICILLIN 500 MG CAP PO SCH ×2 (17:00→20:13)
[2017-07-24] MEDS ORDERED: HYDROmorphONE 1 MG/ML SYG IV STA (18:13)
[2017-07-24 18:53] LABS: ADD UMIC NO; UR ASCORBIC ACID 40 mg/dL (NEGATIVE); UR BILIRUBIN (Dip) NEGATIVE (NEGATIVE); UR BLOOD (Dip) NEGATIVE (NEGATIVE); UR CLARITY CLEAR (CLEAR); UR COLOR YELLOW (YELLOW); UR GLUCOSE (Dip) NEGATIVE (NEGATIVE); UR KETONES (Dip) NEGATIVE (NEGATIVE); UR LEUKOCYTE ESTERASE (Dip) NEGATIVE Leu/ul (NEGATIVE); UR NITRITE (Dip) NEGATIVE (NEGATIVE); UR SPECIFIC GRAVITY (Dip) 1.028 (1.003-1.030); UR TOTAL PROTEIN (Dip) NEGATIVE (NEGATIVE); UR UROBILINOGEN (Dip) 1+ mg/dL (NEGATIVE)
[2017-07-24 19:49] VITALS: BP 129/77; RESP 18
[2017-07-24] MEDS: CYCLOBENZAPRINE 10 MG TAB PO SCH (20:14)
[2017-07-24] MEDS: ZOLPIDEM 5 MG TAB PO PRN (20:17)
[2017-07-24] MEDS: DOCUSATE SODIUM 100 MG CAP PO SCH (21:00)
[2017-07-24] MEDS: SENNA TAB PO SCH (21:00)
[2017-07-25] MEDS: HYDROmorphONE 1 MG/ML SYG IV PRN ×6 (06:47→23:57)
[2017-07-25 07:00] VITALS: BP 132/90; RESP 18
[2017-07-25 07:15] LABS: BASOPHILS % 0.2 % (0.0-2.0); EOSINOPHILS # 0.1 10^3/ul (0.0-0.5); EOSINOPHILS % 0.2 % (0.0-7.0); HEMATOCRIT 40.9 % (42.0-52.0); HEMOGLOBIN 13.9 g/dl (14.0-18.0); LYMPHOCYTES # 1.8 10^3/ul (0.8-2.9); LYMPHOCYTES % 8.8 % (15.0-51.0); MEAN CORPUSCULAR HEMOGLOBIN 29.1 pg (29.0-33.0); MEAN CORPUSCULAR VOLUME 85.6 fl (82.0-101.0); MEAN PLATELET VOLUME 9.7 fl (7.4-10.4); MONOCYTE # 1.3 10^3/ul (0.3-0.9); MONOCYTES % 6.5 % (0.0-11.0); NEUTROPHIL # 16.9 10^3/ul (1.6-7.5); NEUTROPHILS % 83.1 % (39.0-77.0); PLATELET COUNT 409 10^3/UL (140-415); RED BLOOD COUNT 4.78 10^6/ul (4.70-6.10); RED CELL DISTRIBUTION WIDTH 13.2 % (11.5-14.5); WHITE BLOOD COUNT 20.4 10^3/ul (4.8-10.8)
[2017-07-25 07:38] LABS: ALBUMIN 3.4 g/dl (3.3-4.9); ALBUMIN/GLOBULIN RATIO 1.03; BILIRUBIN,INDIRECT 0.1 mg/dl (0-1.1); BILIRUBIN,TOTAL 0.1 mg/dl (0.2-1.3); CALCIUM 9.3 mg/dl (8.4-10.2); CREATININE 0.8 mg/dl (0.61-1.24); POTASSIUM 4.1 mmol/L (3.5-5.1); TOTAL PROTEIN 6.7 g/dl (6.1-8.1)
[2017-07-25 08:00] VITALS: BP 132/90; PULSE 83; RESP 18
[2017-07-25] MEDS: CYCLOBENZAPRINE 10 MG TAB PO SCH ×2 (09:09→12:28)
[2017-07-25] MEDS: DOCUSATE SODIUM 100 MG CAP PO SCH ×2 (09:09→20:23)
[2017-07-25] MEDS: AMPICILLIN 500 MG CAP PO SCH ×3 (09:09→20:19)
[2017-07-25] MEDS: DEXAMETHASONE 2 MG TAB PO SCH (09:13)
--- NOTE | 2017-07-25 12:38 | CONS ---
DATE OF ADMISSION: 07/24/2017 DATE OF CONSULTATION: 07/25/2017 REHABILITATION POST ADMISSION PHYSICIAN EVALUATION REHABILITATION IMPAIRMENT CATEGORY: Cervical spondylosis with cord compression , status post decompressive laminectomy and fusion. ACTIVE COMORBIDITIES: 1. Acute pain syndrome. 2. Recent urinary retention. 3. Impairments in self-care and mobility. HISTORY OF PRESENT ILLNESS: The patient is a 57-year-old gentleman who had been noting severe increasing neck pain despite conservative measures. The patient had noted that the pain was radiating and accompanied by numbness and also occasionally going down the left lower extremity. Workup did reveal cervical stenosis C3 through C6 with cord compression and myelopathy. The patient did undergo cervical decompressive laminectomy and fusion. His postoperative course has been notable for significant pain in addition to impairments in self-care and mobility as compared to baseline. The patient has been cleared to transfer to the rehabilitation unit for comprehensive interdisciplinary rehab care. FUNCTIONAL HISTORY: Prior to recent events, he was independent in self-care tasks and mobility. Currently, he requires maximal assist for self-care and minimal to moderate assist for mobility tasks. I have reviewed the preadmission screen and the patient's current functional status is consistent with the preadmission screen. SOCIAL HISTORY: The patient reports living at home with family and hopes to return there upon discharge. PAST MEDICAL HISTORY: Chronic neck pain. CURRENT MEDICATIONS: 1. [place] p.r.n. 2. Ampicillin 500 mg p.o. q.i.d. 3. Flexeril 10 mg p.o. t.i.d. 4. Decadron. 5. Valium p.r.n. 6. Colace 100 mg b.i.d. 7. Dilaudid p.r.n. 8. MiraLax p.r.n. 9. Ambien p.r.n. ALLERGIES: THE PATIENT WITH NO KNOWN DRUG ALLERGIES. PHYSICAL EXAMINATION: VITAL SIGNS: The patient is currently afebrile with stable vital signs. HEENT: The extraocular motion intact. Oropharynx clear. NECK: Supple. LUNGS: Clear anteriorly. CARDIAC: S1, S2. ABDOMEN: Soft, nontender, positive bowel sounds. NEUROLOGIC: He is awake and alert and oriented x3. He can follow simple 1- step commands. He demonstrates antigravity strength in bilateral upper extremity and lower extremity. He does have impaired dynamic balance. PLAN: The patient has been admitted for comprehensive interdisciplinary acute rehab and is anticipated to tolerate 3 hours of daily therapy in divided doses for at least 5/7 days a week. The treatment plan will include: 1. Physical therapy to focus on bed mobility, transfers, and household ambulation with the goal of having the patient reach a standby assist level. Given that patient does live in a third floor apartment with no elevator access , the goal will also be to have patient independent with stair mobility. 2. Occupational therapy to focus on hygiene, grooming, dressing, bathing, and toileting activities with the goal of having the patient reach standby assist level. 3. Rehabilitation nursing for carryover of therapeutic interventions. The goal of continent of bowel and bladder, and the goal of pain adequately managed on oral medications. ESTIMATED LENGTH OF STAY: seven days. DISPOSITION GOAL: home. Rehabilitation Barrier: Pain Intervention For Barrier: Interdisciplinary Rehabilitation I acknowledge that I performed a full physical examination on this patient within 24 hours of admission to the rehabilitation unit and believe the patient is a good candidate for comprehensive interdisciplinary rehab care and is anticipated to make reasonable goals in a reasonable period of time as outlined above. Dictated By: TAVON RAMIREZ/SHANE Conf#: [id number] DID#: [id number]
[2017-07-25] MEDS ORDERED: BACLOFEN 10 MG TAB PO SCH (13:30)
[2017-07-25 14:00] VITALS: BP 124/74; RESP 18
[2017-07-25] MEDS: HYDROCODONE/APAP (10/325) TAB PO PRN (14:11)
[2017-07-25] MEDS: NICOTINE (21 MG/24 HR) PATCH TRANSDERM SCH (15:35)
[2017-07-25 20:00] VITALS: BP 124/78; RESP 18
--- NOTE | 2017-07-25 20:11 | HP ---
Date/Time of Note Date/Time of Note DATE: 07/25/17 TIME: 20:10 Assessment/Plan VTE Prophylaxis VTE Prophylaxis Intervention: SCD's Assessment/Plan Chief Complaint/Hosp Course Assessment/Plan -Cervical spondylosis with cord compression, myelopathy and quadriparesis, status post cervical laminectomy with C3-C7 posterolateral fusion and instrumentation by Dr. Hunter on 07/18. Continue postoperative antibiotics and steroids, and medication. Continue physical and occupational therapy. -Leukocytosis secondary to steroids -Tobacco dependence, continue nicotine patch, smoking cessation is strongly advised. Further recommendations based on clinical course. Plan of care discussed with Dr. Argueta. Problems: HPI/ROS Admit Date/Time Admit Date/Time Jul 24, 2017 at 15:36 Hx of Present Illness Patient is 57-year-old male with cervical myelopathy and cord compression that failed conservative treatment. Patient underwent cervical laminectomy with C3- C7 posterolateral fusion and instrumentation by Dr. Hunter on 07/18. Post surgery patient experienced significant pain and impairment in mobility and self -care. Patient is admitted to acute rehabilitation for further management. Patient denies any fever chills denies dysuria denies nausea vomiting. ROS 12 point review of system is negative unless one mentioned in HPI PMH/Family/Social Past Medical History Medical History: GERD, other (Chronic back pain, neck pain) Past Surgical History Status post back surgery Status post cataract surgery Family History Significant Family History: no pertinent family hx Social History Alcohol Use: none Smoking Status: Current every day smoker Drug Use: none Exam/Review of Systems Vital Signs Vitals Vital Signs Date Time Temp Pulse Resp B/P Pulse Ox O2 Delivery O2 Flow Rate FiO2 07/25/17 14:00 97.2 90 18 124/74 92 07/25/17 08:00 Room Air Intake and Output 07/24/17 07/24/17 07/25/17 15:00 23:00 07:00 Intake Total 2600 ml Output Total 400 ml Balance 2200 ml Exam Constitutional: alert, oriented Head: normocephalic Neck: other (Status post surgery), supple Respiratory: normal air movement Cardiovascular: nl pulses Gastrointestinal: non-tender, soft Musculoskeletal: nl extremities to inspection Extremities: normal pulses Labs Result Diagram: 07/25/1762407/25/17624 Medications Medications Current Medications Senna (Senokot) 1 tab HS PO ; Start 07/24/17 at 21:00 Acetaminophen (Tylenol Tab) 650 mg Q4H PRN PO PAIN; Start 07/24/17 at 16:30 Bisacodyl (Dulcolax Supp) 10 mg DAILY PRN [place] CONSTIPATION; Start 07/24/17 at 16 :30 Magnesium Hydroxide (Milk Of Mag) 30 ml Q12H PRN PO CONSTIPATION; Start at 16:30 Lactulose (Enulose) 20 gm DAILY PRN PO CONSTIPATION; Start 07/24/17 at 16:30 Ondansetron HCl (Zofran Inj) 4 mg Q6H PRN IV NAUSEA AND/OR VOMITING; Start 07/24/17 at 16:30 Zolpidem Tartrate (Ambien) 5 mg HS PRN PO INSOMNIA Last administered on 20:17; Admin Dose 5 MG; Start 07/24/17 at 16:30 Polyethylene Glycol (Miralax) 17 gm DAILY PRN PO CONSTIPATION; Start 07/24/17 at 16:30 Nicotine (Nicoderm 21 Mg/ 24hr) 1 patch Q24H TRANSDERM Last administered on 15:35; Admin Dose 1 PATCH; Start 07/25/17 at 14:30 Acetaminophen/ Hydrocodone Bitart ([place] (10/325)) 1 tab Q4H PRN PO PAIN Last administered on 07/25/17 14:11; Admin Dose 1 TAB; Start 07/24/17 at 16:30 Ampicillin (Ampicillin) 500 mg QID PO Last administered on 07/25/17 12:28; Admin Dose 500 MG; Start 07/24/17 at 17:00 Hydromorphone HCl (Dilaudid) 1 mg Q3H PRN IV SEVERE PAIN LEVEL 7-10 Last administered on 07/25/17 19:55; Admin Dose 1 MG; Start 07/24/17 at 16:30 Docusate Sodium (Colace) 100 mg BID PO Last administered on 07/25/17 09:09; Admin Dose 100 MG; Start 07/24/17 at 21:00 Diazepam (Valium) 5 mg Q6H PRN PO ANXIETY; Start 07/24/17 at 16:30 Dexamethasone (Decadron) 2 mg DAILY PO Last administered on 07/25/17 09:13; Admin Dose 2 MG; Start 07/25/17 at 09:00 Influenza Virus Vaccine (Fluzone) 0.5 ml ONCE ONCE IM* ; Start 07/25/17 at 21:00 ; Stop 07/25/17 at 21:01 Baclofen (Lioresal) 10 mg BID PO ; Start 07/25/17 at 17:00 SHAKIRA PAREKH Jul 25, 2017 20:11
[2017-07-25] MEDS: BACLOFEN 10 MG TAB PO SCH (20:19)
[2017-07-25] MEDS: SENNA TAB PO SCH (20:23)
[2017-07-25] MEDS ORDERED: INFLUENZA VIRUS VACCINE 0.5 ML SYG IM* ONE (21:00)
[2017-07-25] MEDS: ZOLPIDEM 5 MG TAB PO PRN (21:48)
[2017-07-26 02:00] VITALS: BP 120/75; RESP 18
--- NOTE | 2017-07-26 06:52 | CONS ---
Date/Time of Note Date/Time of Note DATE: 07/26/17 TIME: 06:51 Consult Date/Type/Reason Admit Date/Time Jul 24, 2017 at 15:36 Initial Consult Date Subjective Reports feeling much better Objective pulm-cta cga/min assist ambulation Vital Signs Date Time Temp Pulse Resp B/P Pulse Ox O2 Delivery O2 Flow Rate FiO2 07/26/17 02:00 98.0 82 18 120/75 96 07/25/17 08:00 Room Air Intake and Output 07/25/17 07/25/17 07/26/17 15:00 23:00 07:00 Intake Total 1600 ml Output Total 600 ml Balance 1000 ml Results/Medications Result Diagram: 07/25/1762407/25/17624 Medications Current Medications Senna (Senokot) 1 tab HS PO ; Start 07/24/17 at 21:00 Acetaminophen (Tylenol Tab) 650 mg Q4H PRN PO PAIN; Start 07/24/17 at 16:30 Bisacodyl (Dulcolax Supp) 10 mg DAILY PRN [place] CONSTIPATION; Start 07/24/17 at 16 :30 Magnesium Hydroxide (Milk Of Mag) 30 ml Q12H PRN PO CONSTIPATION; Start at 16:30 Lactulose (Enulose) 20 gm DAILY PRN PO CONSTIPATION; Start 07/24/17 at 16:30 Ondansetron HCl (Zofran Inj) 4 mg Q6H PRN IV NAUSEA AND/OR VOMITING; Start 07/24/17 at 16:30 Zolpidem Tartrate (Ambien) 5 mg HS PRN PO INSOMNIA Last administered on 21:48; Admin Dose 5 MG; Start 07/24/17 at 16:30 Polyethylene Glycol (Miralax) 17 gm DAILY PRN PO CONSTIPATION; Start 07/24/17 at 16:30 Nicotine (Nicoderm 21 Mg/ 24hr) 1 patch Q24H TRANSDERM Last administered on 15:35; Admin Dose 1 PATCH; Start 07/25/17 at 14:30 Acetaminophen/ Hydrocodone Bitart ([place] (10/325)) 1 tab Q4H PRN PO PAIN Last administered on 07/25/17 14:11; Admin Dose 1 TAB; Start 07/24/17 at 16:30 Ampicillin (Ampicillin) 500 mg QID PO Last administered on 07/25/17 20:19; Admin Dose 500 MG; Start 07/24/17 at 17:00 Hydromorphone HCl (Dilaudid) 1 mg Q3H PRN IV SEVERE PAIN LEVEL 7-10 Last administered on 07/25/17 23:57; Admin Dose 1 MG; Start 07/24/17 at 16:30 Docusate Sodium (Colace) 100 mg BID PO Last administered on 07/25/17 09:09; Admin Dose 100 MG; Start 07/24/17 at 21:00 Diazepam (Valium) 5 mg Q6H PRN PO ANXIETY; Start 07/24/17 at 16:30 Dexamethasone (Decadron) 2 mg DAILY PO Last administered on 07/25/17 09:13; Admin Dose 2 MG; Start 07/25/17 at 09:00 Baclofen (Lioresal) 10 mg BID PO Last administered on 07/25/17 20:19; Admin Dose 10 MG; Start 07/25/17 at 17:00 Assessment/Plan Additional Assessment/Plan Rehab- Cervical spondylosis with cord compression, status post decompressive laminectomy and fusion. Continue current treatment plan Acute pain syndrome-continue current pain meds Recent urinary retention-voiding TAVON LUCIO MD Jul 26, 2017 06:52
[2017-07-26] MEDS: HYDROmorphONE 1 MG/ML SYG IV PRN ×5 (07:04→20:57)
[2017-07-26 07:30] VITALS: BP 121/83; RESP 18
[2017-07-26] MEDS: DOCUSATE SODIUM 100 MG CAP PO SCH ×2 (09:36→21:00)
[2017-07-26] MEDS: AMPICILLIN 500 MG CAP PO SCH ×4 (09:36→20:55)
[2017-07-26] MEDS: DEXAMETHASONE 2 MG TAB PO SCH (09:36)
[2017-07-26] MEDS: BACLOFEN 10 MG TAB PO SCH ×2 (09:36→20:55)
--- NOTE | 2017-07-26 12:02 | PN ---
Date/Time of Note Date/Time of Note DATE: 07/26/17 TIME: 12:01 Assessment/Plan VTE Prophylaxis VTE Prophylaxis Intervention: other Lines/Catheters IV Catheter Type (from Nrsg): Peripheral IV Assessment/Plan Chief Complaint/Hosp Course -Cervical spondylosis with cord compression, myelopathy and quadriparesis, status post cervical laminectomy with C3-C7 posterolateral fusion and instrumentation by Dr. Hunter on 07/18. Continue postoperative antibiotics and steroids, and medication. Continue physical and occupational therapy. -Leukocytosis secondary to steroids -Tobacco dependence, continue nicotine patch, smoking cessation is strongly advised. Problems: Subjective 24 Hr Interval Summary Free Text/Dictation Patient complain of back pain Exam/Review of Systems Vital Signs Vitals Vital Signs Date Time Temp Pulse Resp B/P Pulse Ox O2 Delivery O2 Flow Rate FiO2 07/26/17 07:30 98.4 84 18 121/83 96 07/25/17 08:00 Room Air Intake and Output 07/25/17 07/25/17 07/26/17 15:00 23:00 07:00 Intake Total 1600 ml Output Total 600 ml Balance 1000 ml Exam Constitutional: well developed Head: atraumatic, normocephalic Neck: supple Respiratory: clear to auscultation Cardiovascular: regular rate and rhythm Gastrointestinal: non-tender, soft Extremities: normal pulses Results Result Diagram: 07/25/1762407/25/17624 Medications Medications Current Medications Senna (Senokot) 1 tab HS PO ; Start 07/24/17 at 21:00 Acetaminophen (Tylenol Tab) 650 mg Q4H PRN PO PAIN; Start 07/24/17 at 16:30 Bisacodyl (Dulcolax Supp) 10 mg DAILY PRN [place] CONSTIPATION; Start 07/24/17 at 16 :30 Magnesium Hydroxide (Milk Of Mag) 30 ml Q12H PRN PO CONSTIPATION; Start at 16:30 Lactulose (Enulose) 20 gm DAILY PRN PO CONSTIPATION; Start 07/24/17 at 16:30 Ondansetron HCl (Zofran Inj) 4 mg Q6H PRN IV NAUSEA AND/OR VOMITING; Start 07/24/17 at 16:30 Zolpidem Tartrate (Ambien) 5 mg HS PRN PO INSOMNIA Last administered on t 21:48; Admin Dose 5 MG; Start 07/24/17 at 16:30 Polyethylene Glycol (Miralax) 17 gm DAILY PRN PO CONSTIPATION; Start 07/24/17 at 16:30 Nicotine (Nicoderm 21 Mg/ 24hr) 1 patch Q24H TRANSDERM Last administered on 15:35; Admin Dose 1 PATCH; Start 07/25/17 at 14:30 Acetaminophen/ Hydrocodone Bitart ([place] (10/325)) 1 tab Q4H PRN PO PAIN Last administered on 07/25/17 14:11; Admin Dose 1 TAB; Start 07/24/17 at 16:30 Ampicillin (Ampicillin) 500 mg QID PO Last administered on 07/26/17 09:36; Admin Dose 500 MG; Start 07/24/17 at 17:00 Hydromorphone HCl (Dilaudid) 1 mg Q3H PRN IV SEVERE PAIN LEVEL 7-10 Last administered on 07/26/17 11:38; Admin Dose 1 MG; Start 07/24/17 at 16:30 Docusate Sodium (Colace) 100 mg BID PO Last administered on 07/26/17 09:36; Admin Dose 100 MG; Start 07/24/17 at 21:00 Diazepam (Valium) 5 mg Q6H PRN PO ANXIETY; Start 07/24/17 at 16:30 Dexamethasone (Decadron) 2 mg DAILY PO Last administered on 07/26/17 09:36; Admin Dose 2 MG; Start 07/25/17 at 09:00 Baclofen (Lioresal) 10 mg BID PO Last administered on 07/26/17 09:36; Admin Dose 10 MG; Start 07/25/17 at 17:00 VERONICA MÉNDEZ Jul 26, 2017 12:02
[2017-07-26 14:00] VITALS: BP 115/70; RESP 18
[2017-07-26] MEDS: NICOTINE (21 MG/24 HR) PATCH TRANSDERM SCH (17:08)
[2017-07-26 20:00] VITALS: BP 120/77; RESP 18
[2017-07-26] MEDS: SENNA TAB PO SCH (21:00)
[2017-07-26] MEDS: ZOLPIDEM 5 MG TAB PO PRN (21:05)
[2017-07-27 02:00] VITALS: BP 125/75; RESP 18
[2017-07-27] MEDS: HYDROmorphONE 1 MG/ML SYG IV PRN ×5 (04:34→22:02)
[2017-07-27 07:00] VITALS: BP 127/84; RESP 18
[2017-07-27] MEDS: BACLOFEN 10 MG TAB PO SCH ×2 (08:06→20:52)
[2017-07-27] MEDS: AMPICILLIN 500 MG CAP PO SCH ×4 (08:06→20:52)
[2017-07-27] MEDS: DEXAMETHASONE 2 MG TAB PO SCH (08:06)
[2017-07-27] MEDS: HYDROCODONE/APAP (10/325) TAB PO PRN ×2 (08:06→20:55)
[2017-07-27] MEDS: DOCUSATE SODIUM 100 MG CAP PO SCH ×2 (08:07→20:56)
--- NOTE | 2017-07-27 12:20 | PN ---
Date/Time of Note Date/Time of Note DATE: 07/27/17 TIME: 12:19 Assessment/Plan VTE Prophylaxis VTE Prophylaxis Intervention: other Lines/Catheters IV Catheter Type (from Nrsg): Saline Lock Assessment/Plan Chief Complaint/Hosp Course -Cervical spondylosis with cord compression, myelopathy and quadriparesis, status post cervical laminectomy with C3-C7 posterolateral fusion and instrumentation by Dr. Hunter on 07/18. Continue postoperative antibiotics and steroids, and medication. Continue physical and occupational therapy. -Leukocytosis secondary to steroids -Tobacco dependence, continue nicotine patch, smoking cessation is strongly advised. Problems: Subjective 24 Hr Interval Summary Free Text/Dictation Patient still has some neck pain Exam/Review of Systems Vital Signs Vitals Vital Signs Date Time Temp Pulse Resp B/P Pulse Ox O2 Delivery O2 Flow Rate FiO2 07/27/17 07:00 97.6 90 18 127/84 98 07/25/17 08:00 Room Air Intake and Output 07/26/17 07/26/17 07/27/17 14:59 22:59 06:59 Intake Total 1160 ml 800 ml Output Total 360 ml 800 ml Balance 800 ml 0 ml Exam Constitutional: well developed Head: atraumatic, normocephalic Neck: supple Respiratory: clear to auscultation Cardiovascular: regular rate and rhythm Gastrointestinal: non-tender, soft Extremities: normal pulses Results Result Diagram: 07/25/1762407/25/17624 Medications Medications Current Medications Senna (Senokot) 1 tab HS PO ; Start 07/24/17 at 21:00 Acetaminophen (Tylenol Tab) 650 mg Q4H PRN PO PAIN; Start 07/24/17 at 16:30 Bisacodyl (Dulcolax Supp) 10 mg DAILY PRN [place] CONSTIPATION; Start 07/24/17 at 16 :30 Magnesium Hydroxide (Milk Of Mag) 30 ml Q12H PRN PO CONSTIPATION; Start at 16:30 Lactulose (Enulose) 20 gm DAILY PRN PO CONSTIPATION; Start 07/24/17 at 16:30 Ondansetron HCl (Zofran Inj) 4 mg Q6H PRN IV NAUSEA AND/OR VOMITING; Start 07/24/17 at 16:30 Zolpidem Tartrate (Ambien) 5 mg HS PRN PO INSOMNIA Last administered on t 21:05; Admin Dose 5 MG; Start 07/24/17 at 16:30 Polyethylene Glycol (Miralax) 17 gm DAILY PRN PO CONSTIPATION; Start 07/24/17 at 16:30 Nicotine (Nicoderm 21 Mg/ 24hr) 1 patch Q24H TRANSDERM Last administered on 17:08; Admin Dose 1 PATCH; Start 07/25/17 at 14:30 Acetaminophen/ Hydrocodone Bitart ([place] (10/325)) 1 tab Q4H PRN PO PAIN Last administered on 07/27/17 08:06; Admin Dose 1 TAB; Start 07/24/17 at 16:30 Ampicillin (Ampicillin) 500 mg QID PO Last administered on 07/27/17 08:06; Admin Dose 500 MG; Start 07/24/17 at 17:00 Hydromorphone HCl (Dilaudid) 1 mg Q3H PRN IV SEVERE PAIN LEVEL 7-10 Last administered on 07/27/17 10:11; Admin Dose 1 MG; Start 07/24/17 at 16:30 Docusate Sodium (Colace) 100 mg BID PO Last administered on 07/26/17 09:36; Admin Dose 100 MG; Start 07/24/17 at 21:00 Diazepam (Valium) 5 mg Q6H PRN PO ANXIETY; Start 07/24/17 at 16:30 Dexamethasone (Decadron) 2 mg DAILY PO Last administered on 07/27/17 08:06; Admin Dose 2 MG; Start 07/25/17 at 09:00 Baclofen (Lioresal) 10 mg BID PO Last administered on 07/27/17 08:06; Admin Dose 10 MG; Start 07/25/17 at 17:00 VERONICA MÉNDEZ Jul 27, 2017 12:20
[2017-07-27] MEDS: NICOTINE (21 MG/24 HR) PATCH TRANSDERM SCH (13:33)
[2017-07-27 14:00] VITALS: BP 129/95; RESP 18
[2017-07-27 20:00] VITALS: BP 110/69; RESP 18
[2017-07-27] MEDS: ZOLPIDEM 5 MG TAB PO PRN (20:54)
[2017-07-27] MEDS: SENNA TAB PO SCH (20:56)
[2017-07-28 02:00] VITALS: BP 118/78; RESP 18
[2017-07-28] MEDS: HYDROmorphONE 1 MG/ML SYG IV PRN ×5 (02:54→22:00)
[2017-07-28] MEDS: HYDROCODONE/APAP (10/325) TAB PO PRN ×2 (06:36→17:48)
[2017-07-28 07:00] VITALS: BP 135/86; RESP 18
[2017-07-28] MEDS: DIAZEPAM 5 MG TAB PO PRN ×2 (08:04→21:47)
[2017-07-28] MEDS: DOCUSATE SODIUM 100 MG CAP PO SCH ×2 (09:14→21:00)
[2017-07-28] MEDS: AMPICILLIN 500 MG CAP PO SCH ×4 (09:14→21:46)
[2017-07-28] MEDS: DEXAMETHASONE 2 MG TAB PO SCH (09:14)
[2017-07-28] MEDS: BACLOFEN 10 MG TAB PO SCH ×2 (09:15→21:46)
--- NOTE | 2017-07-28 11:46 | CONS ---
Date/Time of Note Date/Time of Note DATE: 07/28/17 TIME: 11:46 Consult Date/Type/Reason Admit Date/Time Jul 24, 2017 at 15:36 Objective Vital Signs Date Time Temp Pulse Resp B/P Pulse Ox O2 Delivery O2 Flow Rate FiO2 07/28/17 07:00 98.3 83 18 135/86 96 07/25/17 08:00 Room Air Intake and Output 07/27/17 07/27/17 07/28/17 14:59 22:59 06:59 Intake Total 2600 ml 420 ml Output Total 1950 ml 2150 ml Balance 650 ml -1730 ml INTERDISCIPLINARY TEAM CONFERENCE BOWEL- Cont BLADDER-Cont SKIN- intact OT- DRESSING-sba BATHING-cga TOILETING-cga PT- BED MOBILITY-min TRANSFERS-min AMBULATION-min 150 feet A/P- Interdisciplinary team conference held today. Please see interdisciplinary sheet. Working toward d.c. on 07/31 with post discharge follow up of physical therapy, occupational therapy. Results/Medications Result Diagram: 07/25/1725 07/25/17 06 Medications Current Medications Senna (Senokot) 1 tab HS PO ; Start 07/24/17 at 21:00 Acetaminophen (Tylenol Tab) 650 mg Q4H PRN PO PAIN; Start 07/24/17 at 16:30 Bisacodyl (Dulcolax Supp) 10 mg DAILY PRN [place] CONSTIPATION; Start 07/24/17 at 16 :30 Magnesium Hydroxide (Milk Of Mag) 30 ml Q12H PRN PO CONSTIPATION; Start at 16:30 Lactulose (Enulose) 20 gm DAILY PRN PO CONSTIPATION; Start 07/24/17 at 16:30 Ondansetron HCl (Zofran Inj) 4 mg Q6H PRN IV NAUSEA AND/OR VOMITING; Start 07/24/17 at 16:30 Zolpidem Tartrate (Ambien) 5 mg HS PRN PO INSOMNIA Last administered on 20:54; Admin Dose 5 MG; Start 07/24/17 at 16:30 Polyethylene Glycol (Miralax) 17 gm DAILY PRN PO CONSTIPATION; Start 07/24/17 at 16:30 Nicotine (Nicoderm 21 Mg/ 24hr) 1 patch Q24H TRANSDERM Last administered on 13:33; Admin Dose 1 PATCH; Start 07/25/17 at 14:30 Acetaminophen/ Hydrocodone Bitart ([place] (10/325)) 1 tab Q4H PRN PO PAIN Last administered on 07/28/17 06:36; Admin Dose 1 TAB; Start 07/24/17 at 16:30 Ampicillin (Ampicillin) 500 mg QID PO Last administered on 07/28/17 09:14; Admin Dose 500 MG; Start 07/24/17 at 17:00 Hydromorphone HCl (Dilaudid) 1 mg Q3H PRN IV SEVERE PAIN LEVEL 7-10 Last administered on 07/28/17 11:15; Admin Dose 1 MG; Start 07/24/17 at 16:30 Docusate Sodium (Colace) 100 mg BID PO Last administered on 07/28/17 09:14; Admin Dose 100 MG; Start 07/24/17 at 21:00 Diazepam (Valium) 5 mg Q6H PRN PO ANXIETY Last administered on 07/28/17 08:04 ; Admin Dose 5 MG; Start 07/24/17 at 16:30 Dexamethasone (Decadron) 2 mg DAILY PO Last administered on 07/28/17 09:14; Admin Dose 2 MG; Start 07/25/17 at 09:00 Baclofen (Lioresal) 10 mg BID PO Last administered on 07/28/17 09:15; Admin Dose 10 MG; Start 07/25/17 at 17:00 TAVON LUCIO MD Jul 28, 2017 11:46
[2017-07-28] MEDS: NICOTINE (21 MG/24 HR) PATCH TRANSDERM SCH (12:48)
--- NOTE | 2017-07-28 17:31 | PN ---
Date/Time of Note Date/Time of Note DATE: 07/28/17 TIME: 17:28 Assessment/Plan VTE Prophylaxis VTE Prophylaxis Intervention: SCD's Lines/Catheters IV Catheter Type (from Nrsg): Saline Lock Assessment/Plan Chief Complaint/Hosp Course Patient is able to participate with physical therapy premedicated still continues to have great amount of pain Assessment/Plan -Cervical spondylosis with cord compression, myelopathy and quadriparesis, status post cervical laminectomy with C3-C7 posterolateral fusion and instrumentation by Dr. Hunter on 07/18. Continue postoperative antibiotics and steroids, and medication. Continue physical and occupational therapy. -Leukocytosis secondary to steroids -Tobacco dependence, continue nicotine patch, smoking cessation is strongly advised. Further recommendations based on clinical course. Plan of care discussed with Dr. Argueta. Problems: Exam/Review of Systems Vital Signs Vitals Vital Signs Date Time Temp Pulse Resp B/P Pulse Ox O2 Delivery O2 Flow Rate FiO2 07/28/17 07:00 98.3 83 18 135/86 96 07/25/17 08:00 Room Air Intake and Output 07/27/17 07/27/17 07/28/17 15:00 23:00 07:00 Intake Total 2600 ml 420 ml Output Total 1950 ml 2150 ml Balance 650 ml -1730 ml Exam Constitutional: alert, oriented Neck: other (Status post surgery), supple Respiratory: normal air movement Cardiovascular: nl pulses Gastrointestinal: non-tender, soft Musculoskeletal: nl extremities to inspection Extremities: normal pulses Results Result Diagram: 07/25/1762407/25/17 0625 Medications Medications Current Medications Senna (Senokot) 1 tab HS PO ; Start 07/24/17 at 21:00 Acetaminophen (Tylenol Tab) 650 mg Q4H PRN PO PAIN; Start 07/24/17 at 16:30 Bisacodyl (Dulcolax Supp) 10 mg DAILY PRN [place] CONSTIPATION; Start 07/24/17 at 16 :30 Magnesium Hydroxide (Milk Of Mag) 30 ml Q12H PRN PO CONSTIPATION; Start at 16:30 Lactulose (Enulose) 20 gm DAILY PRN PO CONSTIPATION; Start 07/24/17 at 16:30 Ondansetron HCl (Zofran Inj) 4 mg Q6H PRN IV NAUSEA AND/OR VOMITING; Start 07/24/17 at 16:30 Zolpidem Tartrate (Ambien) 5 mg HS PRN PO INSOMNIA Last administered on 20:54; Admin Dose 5 MG; Start 07/24/17 at 16:30 Polyethylene Glycol (Miralax) 17 gm DAILY PRN PO CONSTIPATION; Start 07/24/17 at 16:30 Nicotine (Nicoderm 21 Mg/ 24hr) 1 patch Q24H TRANSDERM Last administered on 12:48; Admin Dose 1 PATCH; Start 07/25/17 at 14:30 Acetaminophen/ Hydrocodone Bitart ([place] (10325)) 1 tab Q4H PRN PO PAIN Last administered on 07/28/17 06:36; Admin Dose 1 TAB; Start 07/24/17 at 16:30 Ampicillin (Ampicillin) 500 mg QID PO Last administered on 07/28/17 12:48; Admin Dose 500 MG; Start 07/24/17 at 17:00 Docusate Sodium (Colace) 100 mg BID PO Last administered on 07/28/17 09:14; Admin Dose 100 MG; Start 07/24/17 at 21:00 Diazepam (Valium) 5 mg Q6H PRN PO ANXIETY Last administered on 07/28/17 08:04 ; Admin Dose 5 MG; Start 07/24/17 at 16:30 Dexamethasone (Decadron) 2 mg DAILY PO Last administered on 07/28/17 09:14; Admin Dose 2 MG; Start 07/25/17 at 09:00 Baclofen (Lioresal) 10 mg BID PO Last administered on 07/28/17 09:15; Admin Dose 10 MG; Start 07/25/17 at 17:00 SHAKIRA PAREKH Jul 28, 2017 17:31
[2017-07-28] MEDS ORDERED: HYDROmorphONE 2 MG TAB PO PRN (18:00)
[2017-07-28 20:00] VITALS: BP 151/90; RESP 18
[2017-07-28] MEDS: SENNA TAB PO SCH (21:00)
[2017-07-28] MEDS: ZOLPIDEM 5 MG TAB PO PRN (22:07)
[2017-07-29 07:30] VITALS: BP 113/76; RESP 18
[2017-07-29] MEDS: HYDROmorphONE 1 MG/ML SYG IV PRN ×5 (07:50→22:57)
[2017-07-29] MEDS: DEXAMETHASONE 2 MG TAB PO SCH (08:38)
[2017-07-29] MEDS: BACLOFEN 10 MG TAB PO SCH (08:38)
[2017-07-29] MEDS: AMPICILLIN 500 MG CAP PO SCH ×4 (08:38→20:26)
[2017-07-29] MEDS: DOCUSATE SODIUM 100 MG CAP PO SCH ×2 (08:38→21:00)
[2017-07-29] MEDS: HYDROCODONE/APAP (10/325) TAB PO PRN (09:28)
--- NOTE | 2017-07-29 10:11 | CONS ---
Date/Time of Note Date/Time of Note DATE: 07/29/17 TIME: 10:10 Consult Date/Type/Reason Admit Date/Time Jul 24, 2017 at 15:36 Subjective Patient reports he has been scratching at "knot" that he feels in left scapular region. Objective pulm-cta Left shoulder / superior scapular region with scratches. sba ambulation Vital Signs Date Time Temp Pulse Resp B/P Pulse Ox O2 Delivery O2 Flow Rate FiO2 07/28/17 20:00 98.6 98 18 151/90 97 07/25/17 08:00 Room Air Intake and Output 07/28/17 07/28/17 07/29/17 15:00 23:00 07:00 Intake Total 1600 ml 240 ml Output Total 1700 ml Balance 1600 ml -1460 ml Results/Medications Result Diagram: 07/25/17 0607/25/17 0625 Medications Current Medications Senna (Senokot) 1 tab HS PO ; Start 07/24/17 at 21:00 Acetaminophen (Tylenol Tab) 650 mg Q4H PRN PO PAIN; Start 07/24/17 at 16:30 Bisacodyl (Dulcolax Supp) 10 mg DAILY PRN [place] CONSTIPATION; Start 07/24/17 at 16 :30 Magnesium Hydroxide (Milk Of Mag) 30 ml Q12H PRN PO CONSTIPATION; Start at 16:30 Lactulose (Enulose) 20 gm DAILY PRN PO CONSTIPATION; Start 07/24/17 at 16:30 Ondansetron HCl (Zofran Inj) 4 mg Q6H PRN IV NAUSEA AND/OR VOMITING; Start 07/24/17 at 16:30 Zolpidem Tartrate (Ambien) 5 mg HS PRN PO INSOMNIA Last administered on 22:07; Admin Dose 5 MG; Start 07/24/17 at 16:30 Polyethylene Glycol (Miralax) 17 gm DAILY PRN PO CONSTIPATION; Start 07/24/17 at 16:30 Nicotine (Nicoderm 21 Mg/ 24hr) 1 patch Q24H TRANSDERM Last administered on 12:48; Admin Dose 1 PATCH; Start 07/25/17 at 14:30 Acetaminophen/ Hydrocodone Bitart ([place] (10/325)) 1 tab Q4H PRN PO PAIN Last administered on 07/29/17 09:28; Admin Dose 1 TAB; Start 07/24/17 at 16:30 Ampicillin (Ampicillin) 500 mg QID PO Last administered on 07/29/17 08:38; Admin Dose 500 MG; Start 07/24/17 at 17:00 Docusate Sodium (Colace) 100 mg BID PO Last administered on 07/29/17 08:38; Admin Dose 100 MG; Start 07/24/17 at 21:00 Diazepam (Valium) 5 mg Q6H PRN PO ANXIETY Last administered on 07/28/17 21:47 ; Admin Dose 5 MG; Start 07/24/17 at 16:30 Dexamethasone (Decadron) 2 mg DAILY PO Last administered on 07/29/17 08:38; Admin Dose 2 MG; Start 07/25/17 at 09:00 Baclofen (Lioresal) 10 mg BID PO Last administered on 07/29/17 08:38; Admin Dose 10 MG; Start 07/25/17 at 17:00 Hydromorphone HCl (Dilaudid) 1 mg Q3H PRN IV SEVERE PAIN LEVEL 7-10 Last administered on 07/29/17 07:50; Admin Dose 1 MG; Start 07/28/17 at 21:30 Assessment/Plan Additional Assessment/Plan Rehab- Cervical spondylosis with cord compression, status post decompressive laminectomy and fusion. Continue rehab program Acute pain syndrome-Adjust meds, increase baclofen for muscle spasm Leukocytosis- due to steroids. Recheck WBC TAVON LUCIO MD Jul 29, 2017 10:11
[2017-07-29] MEDS ORDERED: INFLUENZA VIRUS VACCINE 0.5 ML SYG IM* ONE (12:00)
[2017-07-29 14:00] VITALS: BP 121/76; RESP 18
[2017-07-29 14:51] LABS: BASOPHIL # 0.1 10^3/ul (0.0-0.1); BASOPHILS % 0.4 % (0.0-2.0); EOSINOPHILS # 0.2 10^3/ul (0.0-0.5); EOSINOPHILS % 1.2 % (0.0-7.0); HEMATOCRIT 39.9 % (42.0-52.0); HEMOGLOBIN 13.4 g/dl (14.0-18.0); LYMPHOCYTES # 1.9 10^3/ul (0.8-2.9); LYMPHOCYTES % 9.9 % (15.0-51.0); MEAN CORPUSCULAR HEMOGLOBIN 29.2 pg (29.0-33.0); MEAN CORPUSCULAR HGB CONC 33.6 g/dl (32.0-37.0); MEAN CORPUSCULAR VOLUME 86.9 fl (82.0-101.0); MEAN PLATELET VOLUME 9.4 fl (7.4-10.4); NEUTROPHIL # 15.3 10^3/ul (1.6-7.5); NEUTROPHILS % 81.1 % (39.0-77.0); PLATELET COUNT 448 10^3/UL (140-415); RED BLOOD COUNT 4.59 10^6/ul (4.70-6.10); RED CELL DISTRIBUTION WIDTH 13.4 % (11.5-14.5); WHITE BLOOD COUNT 18.9 10^3/ul (4.8-10.8)
--- NOTE | 2017-07-29 14:56 | PN ---
Date/Time of Note Date/Time of Note DATE: 07/29/17 TIME: 14:55 Assessment/Plan VTE Prophylaxis VTE Prophylaxis Intervention: SCD's Lines/Catheters IV Catheter Type (from Nrs): Saline Lock Assessment/Plan Chief Complaint/Hosp Course Patient's still has a large amount of pain requiring IV Dilaudid, intermittent participation in physical therapy. Assessment/Plan -Cervical spondylosis with cord compression, myelopathy and quadriparesis, status post cervical laminectomy with C3-C7 posterolateral fusion and instrumentation by Dr. Hunter on 07/18. Continue postoperative antibiotics and steroids, and medication. Continue physical and occupational therapy. -Leukocytosis secondary to steroids -Tobacco dependence, continue nicotine patch, smoking cessation is strongly advised. Further recommendations based on clinical course. Plan of care discussed with Dr. Argueta. Problems: Exam/Review of Systems Vital Signs Vitals Vital Signs Date Time Temp Pulse Resp B/P Pulse Ox O2 Delivery O2 Flow Rate FiO2 07/29/17 07:30 98.1 84 18 113/76 97 07/25/17 08:00 Room Air Intake and Output 07/28/17 07/28/17 07/29/17 15:00 23:00 07:00 Intake Total 1600 ml 240 ml Output Total 1700 ml Balance 1600 ml -1460 ml Exam Constitutional: alert, oriented Neck: other (Status post surgery), supple Respiratory: normal air movement Cardiovascular: nl pulses Gastrointestinal: non-tender, soft Musculoskeletal: nl extremities to inspection Extremities: normal pulses Results Result Diagram: 07/29/17 1423 07/25/17 0625 Results 24 hrs Laboratory Tests Test 07/29/17 14:23 White Blood Count 18.9 H Red Blood Count 4.59 L Hemoglobin 13.4 L Hematocrit 39.9 L Mean Corpuscular Volume 86.9 Mean Corpuscular Hemoglobin 29.2 Mean Corpuscular Hemoglobin Concent 33.6 Red Cell Distribution Width 13.4 Platelet Count 448 H Mean Platelet Volume 9.4 Neutrophils % 81.1 H Lymphocytes % 9.9 L Monocytes % 5.0 Eosinophils % 1.2 Basophils % 0.4 Nucleated Red Blood Cells % 0.0 Neutrophils # 15.3 H Lymphocytes # 1.9 Monocytes # 1.0 H Eosinophils # 0.2 Basophils # 0.1 Nucleated Red Blood Cells # 0.0 Medications Medications Current Medications Senna (Senokot) 1 tab HS PO ; Start 07/24/17 at 21:00 Acetaminophen (Tylenol Tab) 650 mg Q4H PRN PO PAIN; Start 07/24/17 at 16:30 Bisacodyl (Dulcolax Supp) 10 mg DAILY PRN [place] CONSTIPATION; Start 07/24/17 at 16 :30 Magnesium Hydroxide (Milk Of Mag) 30 ml Q12H PRN PO CONSTIPATION; Start at 16:30 Lactulose (Enulose) 20 gm DAILY PRN PO CONSTIPATION; Start 07/24/17 at 16:30 Ondansetron HCl (Zofran Inj) 4 mg Q6H PRN IV NAUSEA AND/OR VOMITING; Start 07/24/17 at 16:30 Zolpidem Tartrate (Ambien) 5 mg HS PRN PO INSOMNIA Last administered on 22:07; Admin Dose 5 MG; Start 07/24/17 at 16:30 Polyethylene Glycol (Miralax) 17 gm DAILY PRN PO CONSTIPATION; Start 07/24/17 at 16:30 Nicotine (Nicoderm 21 Mg/ 24hr) 1 patch Q24H TRANSDERM Last administered on 12:48; Admin Dose 1 PATCH; Start 07/25/17 at 14:30 Acetaminophen/ Hydrocodone Bitart ([place] (10/325)) 1 tab Q4H PRN PO PAIN Last administered on 07/29/17 09:28; Admin Dose 1 TAB; Start 07/24/17 at 16:30 Ampicillin (Ampicillin) 500 mg QID PO Last administered on 07/29/17 14:11; Admin Dose 500 MG; Start 07/24/17 at 17:00 Docusate Sodium (Colace) 100 mg BID PO Last administered on 07/29/17 08:38; Admin Dose 100 MG; Start 07/24/17 at 21:00 Diazepam (Valium) 5 mg Q6H PRN PO ANXIETY Last administered on 07/28/17 21:47 ; Admin Dose 5 MG; Start 07/24/17 at 16:30 Dexamethasone (Decadron) 2 mg DAILY PO Last administered on 07/29/17 08:38; Admin Dose 2 MG; Start 07/25/17 at 09:00 Hydromorphone HCl (Dilaudid) 1 mg Q3H PRN IV SEVERE PAIN LEVEL 7-10 Last administered on 07/29/17t 14:08; Admin Dose 1 MG; Start 07/28/17 at 21:30 Baclofen (Lioresal) 10 mg TID PO ; Start 07/29/17 at 21:00 Gabapentin (Neurontin) 100 mg TID PO ; Start 07/29/17 at 21:00 SHAKIRA PAREKH Jul 29, 2017 14:56
[2017-07-29] MEDS: NICOTINE (21 MG/24 HR) PATCH TRANSDERM SCH (15:26)
[2017-07-29 17:17] LABS: CALCIUM 9.2 mg/dl (8.4-10.2); CREATININE 0.85 mg/dl (0.61-1.24); POTASSIUM 3.7 mmol/L (3.5-5.1)
[2017-07-29 20:00] VITALS: BP 140/88; RESP 20
[2017-07-29] MEDS: GABAPENTIN 100 MG CAP PO SCH (20:28)
[2017-07-29] MEDS: SENNA TAB PO SCH (21:00)
[2017-07-29] MEDS ORDERED: BACLOFEN 10 MG TAB PO SCH ×2 (21:00)
[2017-07-29] MEDS: ZOLPIDEM 5 MG TAB PO PRN (22:58)
[2017-07-30] MEDS: HYDROmorphONE 1 MG/ML SYG IV PRN ×3 (03:37→09:57)
[2017-07-30] MEDS ORDERED: BACLOFEN 10 MG TAB PO SCH ×2 (09:00→14:00)
[2017-07-30] MEDS: GABAPENTIN 100 MG CAP PO SCH ×2 (09:56→13:07)
[2017-07-30] MEDS: DEXAMETHASONE 2 MG TAB PO SCH (09:56)
[2017-07-30] MEDS: DOCUSATE SODIUM 100 MG CAP PO SCH (09:56)
[2017-07-30] MEDS: AMPICILLIN 500 MG CAP PO SCH ×2 (09:56→13:07)
[2017-07-30] MEDS ORDERED: HYDROmorphONE 2 MG TAB PO PRN (11:30)
--- NOTE | 2017-07-30 12:31 | DS ---
Date/Time of Note Date/Time of Note DATE: 07/30/17 TIME: 12:30 Discharge Summary Admission/Discharge Info Admit Date/Time Jul 24, 2017 at 15:36 Discharge Date/Time Discharge Diagnosis 1.Cervical spondylosis with cord compression, status post decompressive laminectomy and fusion. 2. Acute pain syndrome. 3. Improvements in self-care and mobility. Patient Condition: Good Hospital Course Patient was admitted for comprehensive interdisciplinary acute rehabilitation. Patient made steady functional gains and improved from a mod level to a Supervised to Modified Independent level for self care and mobility, including ambulating over 150 feet with the use of a front wheeled walker. He did have variable participation, and did require encouragement for activities. He requested to smoke, [facility] regarding [facility] free facility was reviewed with him by numerous staff members. He ultimately decided to be discharged home with home health follow up. Patient is being discharged home with recommendations for home health PT and OT follow up. DME recommendations: FWW; [facility]; Shower Chair Patient will follow up with PMD and spine surgeon upon DC. Home Meds Reported Medications Morphine Sulfate* (Ms Contin*) 15 Mg Tablet.sa, 15 MG PO DAILY Y for SEVERE PAIN LEVEL 7-10, TAB 07/18/17 Aspirin* (Aspirin* Chew) 81 Mg Tab.chew, 81 MG PO DAILY, TAB.CHEW 07/18/17 Ranitidine Hcl* (Ranitidine Hcl*) 150 Mg Tablet, 150 MG PO HS, #30 TAB 07/18/17 Gabapentin* (Gabapentin*) 600 Mg Tablet, 600 MG PO BID, #60 TAB 07/18/17 Primary Care Provider Not On Staff Doctor Pending Labs Laboratory Tests Test 07/29/17 14:23 White Blood Count 18.910^3/ul (4.8-10.8) Red Blood Count 4.5910^6/ul (4.70-6.10) Hemoglobin 13.4g/dl (14.0-18.0) Hematocrit 39.9% (42.0-52.0) Mean Corpuscular Volume 86.9fl (82.0-101.0) Mean Corpuscular Hemoglobin 29.2pg (29.0-33.0) Mean Corpuscular Hemoglobin Concent 33.6g/dl (32.0-37.0) Red Cell Distribution Width 13.4% (11.5-14.5) Platelet Count 54632^3/UL (140-415) Mean Platelet Volume 9.4fl (7.4-10.4) Neutrophils % 81.1% (39.0-77.0) Lymphocytes % 9.9% (15.0-51.0) Monocytes % 5.0% (0.0-11.0) Eosinophils % 1.2% (0.0-7.0) Basophils % 0.4% (0.0-2.0) Nucleated Red Blood Cells % 0.0/100WBC (0.0-0.0) Neutrophils # 15.310^3/ul (1.6-7.5) Lymphocytes # 1.910^3/ul (0.8-2.9) Monocytes # 1.010^3/ul (0.3-0.9) Eosinophils # 0.210^3/ul (0.0-0.5) Basophils # 0.110^3/ul (0.0-0.1) Nucleated Red Blood Cells # 0.010^3/ul (0.0-0.0) Sodium Level 138mmol/L (135-144) Potassium Level 3.7mmol/L (3.5-5.1) Chloride Level 99mmol/L (97-110) Carbon Dioxide Level 27mmol/L (21-31) Anion Gap 16 (8-16) Blood Urea Nitrogen 26mg/dl (7-20) Creatinine 0.85mg/dl (0.61-1.24) Glucose Level 160mg/dl (70-220) Calcium Level 9.2mg/dl (8.4-10.2) TAVON LUCIO MD Jul 30, 2017 12:31
[2017-07-30] MEDS: NICOTINE (21 MG/24 HR) PATCH TRANSDERM SCH (14:47)
--- NOTE | 2017-07-30 15:14 | PN ---
Date/Time of Note Date/Time of Note DATE: 07/30/17 TIME: 15:13 Assessment/Plan VTE Prophylaxis VTE Prophylaxis Intervention: SCD's Lines/Catheters IV Catheter Type (from Nrs): Saline Lock Assessment/Plan Chief Complaint/Hosp Course Pt is eager to go home, OK to d/c from neurosurgery. D/C with home health. Assessment/Plan -Cervical spondylosis with cord compression, myelopathy and quadriparesis, status post cervical laminectomy with C3-C7 posterolateral fusion and instrumentation by Dr. Hunter on 07/18. Continue postoperative antibiotics and steroids, and medication. Continue physical and occupational therapy. -Leukocytosis secondary to steroids -Tobacco dependence, continue nicotine patch, smoking cessation is strongly advised. Further recommendations based on clinical course. Plan of care discussed with Dr. Argueta. Problems: Exam/Review of Systems Vital Signs Vitals Vital Signs Date Time Temp Pulse Resp B/P Pulse Ox O2 Delivery O2 Flow Rate FiO2 07/29/17 20:00 98.0 95 20 140/88 96 Intake and Output 07/29/17 07/29/17 07/30/17 14:59 22:59 06:59 Intake Total 980 ml 800 ml Output Total 420 ml 1100 ml Balance 560 ml -300 ml Exam Constitutional: alert, oriented Neck: other (Status post surgery), supple Respiratory: normal air movement Cardiovascular: nl pulses Gastrointestinal: non-tender, soft Musculoskeletal: nl extremities to inspection Extremities: normal pulses Results Result Diagram: 07/29/17 1423 07/29/17 1423 Medications Medications Current Medications Senna (Senokot) 1 tab HS PO ; Start 07/24/17 at 21:00 Acetaminophen (Tylenol Tab) 650 mg Q4H PRN PO PAIN; Start 07/24/17 at 16:30 Bisacodyl (Dulcolax Supp) 10 mg DAILY PRN [place] CONSTIPATION; Start 07/24/17 at 16 :30 Magnesium Hydroxide (Milk Of Mag) 30 ml Q12H PRN PO CONSTIPATION; Start at 16:30 Lactulose (Enulose) 20 gm DAILY PRN PO CONSTIPATION; Start 07/24/17 at 16:30 Ondansetron HCl (Zofran Inj) 4 mg Q6H PRN IV NAUSEA AND/OR VOMITING; Start 07/24/17 at 16:30 Zolpidem Tartrate (Ambien) 5 mg HS PRN PO INSOMNIA Last administered on 22:58; Admin Dose 5 MG; Start 07/24/17 at 16:30 Polyethylene Glycol (Miralax) 17 gm DAILY PRN PO CONSTIPATION; Start 07/24/17 at 16:30 Nicotine (Nicoderm 21 Mg/ 24hr) 1 patch Q24H TRANSDERM Last administered on 14:47; Admin Dose 1 PATCH; Start 07/25/17 at 14:30 Ampicillin (Ampicillin) 500 mg QID PO Last administered on 07/30/17 13:07; Admin Dose 500 MG; Start 07/24/17 at 17:00 Docusate Sodium (Colace) 100 mg BID PO Last administered on 07/30/17 09:56; Admin Dose 100 MG; Start 07/24/17 at 21:00 Diazepam (Valium) 5 mg Q6H PRN PO ANXIETY Last administered on 07/28/17 21:47 ; Admin Dose 5 MG; Start 07/24/17 at 16:30 Dexamethasone (Decadron) 2 mg DAILY PO Last administered on 07/30/17 09:56; Admin Dose 2 MG; Start 07/25/17 at 09:00 Gabapentin (Neurontin) 100 mg TID PO Last administered on 07/30/17 13:07; Admin Dose 100 MG; Start 07/29/17 at 21:00 Baclofen (Lioresal) 10 mg DAILY PO Last administered on 07/30/17 09:56; Admin Dose 10 MG; Start 07/30/17 at 09:00 Baclofen (Lioresal) 10 mg 14 PO Last administered on 07/30/17 13:07; Admin Dose 10 MG; Start 07/30/17 at 14:00 Baclofen (Lioresal) 20 mg QHS PO Last administered on 07/29/17 20:30; Admin Dose 20 MG; Start 07/29/17 at 21:00 Hydromorphone HCl (Dilaudid) 2 mg Q3H PRN PO pain Last administered on 13:07; Admin Dose 2 MG; Start 07/30/17 at 11:30 SHAKIRA PAREKH Jul 30, 2017 15:14
[2017-07-30] MEDS ORDERED: HYDROmorphONE 0.5 MG/0.5 ML SYG IV PRN (15:30)
== END 2017-07-30 15:10 | disposition home health service (06) | DRG 561 ==
LOC: UNDOADMIN 15:36 → VRC 15:36
PROVIDERS: ADMIT Physical Medicine & Rehabilitation; ATTEND Internal Medicine
PROC: F07Z5ZZ Bed Mobility Treatment (ICD-10-PCS; principal; 2017-07-24)
PROC: F08Z2ZZ Grooming/Personal Hygiene Treatment (ICD-10-PCS; 2017-07-24)
DX: Z47.89 Encounter for other orthopedic aftercare (principal); D72.829 Elevated white blood cell count, unspecified; F17.200 Nicotine dependence, unspecified, uncomplicated; R52 Pain, unspecified; R33.9 Retention of urine, unspecified; M47.9 Spondylosis, unspecified; Z79.82 Long term (current) use of aspirin
CPT/HCPCS: 80048; 80053; 81003; 85025; 87081; 87086; 90686; 97110; 97116; 97150; 97163; 97166; 97530; 97535; J1170